=== PATIENT | female | born 1995 | race Caucasian/White ===

== ENCOUNTER 2022-05-03 16:15 | Emergency (ER) | payer MEDICAID, SELFPAY ==
[2022-05-03 16:43] VITALS: BP 150/101; PULSE 90; RESP 18; TEMP 36.4; O2SAT 99; BMI 21.0
[2022-05-03 19:30] LABS: Appearance Urine Clear (Clear); Bilirubin Urine Negative (Negative); Blood Urine Negative (Negative); Color Urine Yellow (Yellow); Glucose Urine Negative (Negative); Ketones Urine Negative (Negative); Leukocyte Esterase Urine Negative (Negative); Nitrite Urine Negative (Negative); Protein Urine Negative (Negative); Specific Gravity Urine 1.025 (1.000-1.030); pH Urine 6.5 (5.0-8.5)
[2022-05-03 19:44] LABS: RBC Urine 0-2 (0-2); WBC Urine 0-2 (0-5)
[2022-05-03 19:45] LABS: Ur HCG Qualitative* Negative (Negative)
[2022-05-03 19:56] LABS: Basophils Absolute Auto 0.03 K/uL (0.00-0.30); Basophils Percent Auto 0.3 % (0.0-3.0); Eosinophils Absolute Auto 0.24 K/uL (0.00-0.50); Eosinophils Percent Auto 2.6 % (0.0-7.0); Hematocrit 38.5 % (33.0-51.0); Hemoglobin* 13.1 gm/dL (12.0-16.0); Immature Granulocytes Abs Auto 0.01 K/uL (0.00-0.30); Lymphocytes Absolute Auto 3.74 K/uL (0.90-2.90); Lymphocytes Percent Auto 40.6 % (20-44); Mean Corpuscular HGB Conc 34 gm/dL (32-36); Mean Corpuscular Hemoglobin 35 pg (26-34); Mean Corpuscular Volume 104 fL (80-100); Monocytes Percent Auto 6.2 % (0.0-11.0); Neutrophils Absolute Auto 4.62 K/uL (1.7-7.0); Neutrophils Percent Auto 50.2 % (42.0-72.0); Platelet Count* 266 K/uL (140-440); RDW Coefficient of Variation % 12.6 % (11.5-15.5); White Blood Count* 9.21 K/uL (4.50-11.00)
[2022-05-03 20:08] LABS: Slide Review Reflex No
--- OUTSIDE RECORDS SUMMARY | 2022-05-03 20:08 | XMS_ITS | Encounter Summary ---
:1995 Author Organization [facility] Address [address] [address] Care Team Providers Name Role Phone Unavailable Primary Care Provider Unavailable Reason for Visit Reason Onset Date Comments Refill 09/22/2020 Encounter Details Date Type Department Care Team Description 09/22/2020 Refill [place] Leif Quezada DDS Refill Dentistry [address] [facility] [address] [place] [address] [place], [place] [address] [phone] Social History Tobacco Use Types Packs/Day Years Used Date Smoking Tobacco: Heavy Smoker Cigarettes Smokeless Tobacco: Current Sex Assigned at Date Recorded Not on file documented as of this encounter Nursing Notes Anne Marie Tran - 09/22/2020 10:06 AM CDT Sent to DR Hoang and DR Cohen since DR Velazquez is out this week documented in this encounter Plan of Treatment Not on filedocumented as of this encounter Visit Diagnoses Not on filedocumented in this encounter
--- OUTSIDE RECORDS SUMMARY | 2022-05-03 20:08 | XMS_ITS | Encounter Summary ---
:1995 Author Organization [facility] Address [address] [place] [address] Care Team Providers Name Role Phone Unavailable Primary Care Provider Unavailable Reason for Visit Reason Comments Restorative Services Amalgam fillings on upper an d loser left side Encounter Details Date Type Department Care Team Description 08/13/2021 Office Visit [facility] Serene Velazquez R estorative Services Dentistry [place] ([place] [address] [place] [address] upper and loser left [place], [place] side ) [phone] Social History Tobacco Use Types Packs/Day Years Used Date Smoking Tobacco: Heavy Smoker Cigarettes Smokeless Tobacco: Current Sex Assigned at Date Recorded Not on file documented as of this encounter Progress Notes Serene Velazquez DDS - 08/13/2021 8:10 AM CST DENTAL VISIT NOTE Subjective Reason for Visit/Chief Complaint: Lynn is a 26 y.o. female who presents for Restorative Services (Amalgam fillings on upper and loser left side ) Chief Complaint: No CC Objective/Assessment Chart Review: The following information was reviewed with the patient: Medical history, Dental history, Problem list, Periodontal charting and Radiographs. RADIOGRAPHIC INTERPRETATION: #12, #13, #14, #19 Normal DIAGNOSIS: Dental caries limited to outer third of dentin (primary encounter diagnosis) Dental caries extending into middle third of dentin Defective dental yazdanism Incomplete fracture of tooth PROGNOSIS: #12, #13, #14, #19 Favorable Plan Treatment Discussion: I discussed the Dental findings, Prognosis, Treatment options, Risks and complications associated with procedure and Billing/Treatment estimate with patient. All questions answered and the patient gave informed consent to proceed with dental treatment/services. Procedural Pause: Patient identity verified: Yes Treatment plan/site verified with the patient: Yes Instruments/equipment verified: Yes Medication/allergy contraindications: No Completed Procedures: ANESTHESIA: Topical with 20% benzocaine 2.75 carpules 2% lidocaine with 1:100,000 epinephrine was administered with ANCELMO and infiltration in #12, #13, #14, #19 No adverse side effects observed. Anesthesia was administered by Serene Velazquez DDS AMALGAM WORSHIP, #12, #13, #14, #19: Prepared with complete caries removal and complete removal of the existing yazdanism Isolated area with high speed suction, cotton rolls and a cheek guard Applied Glass ionomer base Applied desensitizer Placed Vitrebond and Microprime Bonding: N/A Preparation filled with amalgam Verified occlusion, contacts and margins POST-OP INSTRUCTIONS: Patient was advised of normal post-operative instructions, potential for post-operative sensitivity, potential need for additional treatment because of proximity to the pulp and the need to exercise care because of the risk of fracture Care was assisted by Shi Next Planned Visit: Op Serene Velazquez DDS 08/13/2021, 9:48 AM --End of Progress Note-- 8:29 AM CHOOL PROGRAM DIRECTOR documented in this encounter Plan of Treatment Not on filedocumented as of this encounter Procedures Procedure Name Priority Date/Time Associated Diagnosis Comme nts 13 MODB AMALGAM-4 Routine 08/13/2021 8:10 AM PRESCHOOL PROGRAM DIRECTOR Dental caries extending SURFACE into middle third of dentin Defective dental yazdanism 19 MOL AMALGAM-3 Routine 08/13/2021 8:10 AM PRESCHOOL PROGRAM DIRECTOR Dental caries extending SURFACE into middle third of dentin Incomplete fracture of tooth 14 MOL AMALGAM-3 Routine 08/13/2021 8:10 AM PRESCHOOL PROGRAM DIRECTOR Dental caries limited SURFACE to outer third of dentin 12 DO AMALGAM-2 Routine 08/13/2021 8:10 AM PRESCHOOL PROGRAM DIRECTOR Dental caries l imited SURFACE to outer third of dentin documented in this encounter Visit Diagnoses Diagnosis Dental caries limited to outer third of dentin - Primary Dental caries extending into middle thir d of dentin Defective dental yazdanism Unspecified unsatisfactory yazdanism o f tooth Incomplete fracture of tooth documented in this encounter
--- OUTSIDE RECORDS SUMMARY | 2022-05-03 20:08 | XMS_ITS | Encounter Summary ---
:1995 Author Organization [facility] Address [address], [place] [address] Care Team Providers Name Role Phone Unavailable Primary Care Provider Unavailable Reason for Visit Reason Comments Restorative Services Amalgam filling # 3 and 5 Encounter Details Date Type Department Care Team Description 07/13/2021 Office Visit [facility] Serene Velazquez R estorative Services Dentistry DDS (Amalgam filling # 3 [address] [address] [address] [place] [address] [phone] Social History Tobacco Use Types Packs/Day Years Used Date Smoking Tobacco: Heavy Smoker Cigarettes Smokeless Tobacco: Current Sex Assigned at Date Recorded Not on file documented as of this encounter Progress Notes Serene Velazquez DDS - 07/13/2021 9:10 AM CST DENTAL VISIT NOTE Subjective Reason for Visit/Chief Complaint: Lynn is a 26 y.o. female who presents for Restorative Services (Amalgam filling # 3 and 5) Chief Complaint: Sensitive to cold Objective/Assessment Chart Review: The following information was reviewed with the patient: Medical history, Dental history, Problem list, Periodontal charting and Radiographs. PROGNOSIS: #3, #4 Favorable Plan Treatment Discussion: I discussed the Dental findings, Prognosis, Treatment options, Risks and complications associated with procedure and Billing/Treatment estimate with patient. All questions answered and the patient gave informed consent to proceed with dental treatment/services. Procedural Pause: Patient identity verified: Yes Treatment plan/site verified with the patient: Yes Instruments/equipment verified: Yes Medication/allergy contraindications: No Completed Procedures: ANESTHESIA: Topical with 20% benzocaine 1.0 carpules 2% lidocaine with 1:100,000 epinephrine was administered with PSA and infiltration in #3, #4 No adverse side effects observed. Anesthesia was administered by Serene Velazquez DDS AMALGAM MANDAEISM, #3, #4: Prepared with complete caries removal Isolated area with high speed suction, cotton rolls and a cheek guard Applied Glass ionomer base Applied desensitizer Bonding: N/A Preparation filled with amalgam Verified occlusion, contacts and margins POST-OP INSTRUCTIONS: Patient was advised of normal post-operative instructions, potential for post-operative sensitivity, potential need for additional treatment because of proximity to the pulp and the need to exercise care because of the risk of fracture Care was assisted by MASHA Allan Next Planned Visit: Op Serene Velazquez DDS 07/13/2021, 10:21 AM --End of Progress Note-- 9:14 AM ARCH SCIENTIST documented in this encounter Plan of Treatment Not on filedocumented as of this encounter Procedures Procedure Name Priority Date/Time Associated Diagnosis Comme nts 4 MOD AMALGAM-3 Routine 07/13/2021 9:10 AM RESEARCH SCIENTIST Dental caries e xtending SURFACE into middle third of dentin documented in this encounter Visit Diagnoses Diagnosis Dental caries extending into middle thir d of dentin - Primary Dental caries limited to outer third of dentin documented in this encounter
--- OUTSIDE RECORDS SUMMARY | 2022-05-03 20:08 | XMS_ITS | Encounter Summary ---
:[address] [facility] Address [address] [place] [address] Care Team Providers Name Role Phone Unavailable Primary Care Provider Unavailable Reason for Visit Reason Comments No Show [facility] desk called and left a [email or web address] Encounter Details Date Type Department Care Team Description 08/20/2021 Telephone [facility] Serene Velazquez M, N o Show ([facility] desk Dentistry DDS called and left a [address] [employer] [address] [employer] message.kb) [place], [place] [address] [place], [place] [phone] (Wo rk) Social History Tobacco Use Types Packs/Day Years Used Date Smoking Tobacco: Heavy Smoker Cigarettes Smokeless Tobacco: Current Sex Assigned at Date Recorded Not on file documented as of this encounter Plan of Treatment Not on filedocumented as of this encounter Visit Diagnoses Not on filedocumented in this encounter
--- OUTSIDE RECORDS SUMMARY | 2022-05-03 20:08 | XMS_ITS | Encounter Summary ---
:1995 Author Organization [facility] Address [address], [place] [address] Care Team Providers Name Role Phone Unavailable Primary Care Provider Unavailable Reason for Visit Reason Comments Broken Alevism Encounter Details Date Type Department Care Team Description 05/14/2021 Telephone [facility] Serene Velazquez B roken Alevism Dentistry [facility] [address] [facility] [id number] [place] [address] [place], [place] [phone] (Wo rk) Social History Tobacco Use Types Packs/Day Years Used Date Smoking Tobacco: Heavy Smoker Cigarettes Smokeless Tobacco: Current Sex Assigned at Date Recorded Not on file documented as of this encounter Plan of Treatment Not on filedocumented as of this encounter Visit Diagnoses Not on filedocumented in this encounter
--- OUTSIDE RECORDS SUMMARY | 2022-05-03 20:08 | XMS_ITS | Clinical Summary ---
:1995 Author Organization [facility] Address [address] [place] [address] Care Team Providers Name Role Phone Unavailable Primary Care Provider Unavailable Source Comments You are receiving this document as you are listed as the primary care provider,follow-up provider, or the patient has been referred to you for consultation.This is in compliance with the Medicare and Medicaid EHR Incentive Program,which states Providers who transition their patient to another setting of careor provider of care or refers their patient to another provider of care shouldprovide summarycare record for each transition of care or referral. [facility] Allergies No known active allergies Medications Medication Sig Dispensed Refills Start Date End Date Status ibuprofen (MOTRIN) 800 Take 1 Tablet by 30 Tablet 1 10/19/2020 Active MG tablet mouth every 8 hours as needed for Pain. Active Problems No known active problems Social History Tobacco Use Types Packs/Day Years Used Date Smoking Tobacco: Heavy Smoker Cigarettes Smokeless Tobacco: Current Sex Assigned at Date Recorded Not on file Last Filed Vital Signs Vital Sign Reading Time Taken Comments Blood Pressure - - Pulse 91 09/03/2020 7:10 AM RESTAURANT CASHIER Temperature - - Respiratory Rate - - Oxygen Saturation - - Inhaled Oxygen Concentration - - Weight - - Height - - Body Mass Index - - Plan of Treatment Health Maintenance Due Date Last Done Comments Cervical Cancer Screening 1995 Due Hep C Screening (Preventive 1993 Services) HepB (1) 1993 COVID-19 Vaccine (#1) 1993 HIV Screening (Preventive 2009 Services) Adult Preventive Visit 2011 Influenza (#1) 2022 DTaP/Tdap/Td (6 - Tdap) 07/21/2025 07/21/2015, 06/04/1997, 06/08/1994, Additional history exists Zoster/Shingles (1 of 2) 2043 HPV Vaccine Aged Out 04/26/2010, 02/25/2010 No longer eligible based on patient 's age to complete this topic HepA Aged Out No longer eligib le based on patient 's age to complete this topic Hib Aged Out No longer eligib le based on patient 's age to complete this topic IPV (Polio) Aged Out No longer eligib le based on patient 's age to complete this topic MCV4 Aged Out No longer eligib le based on patient 's age to complete this topic Pneumococcal Aged Out No longer eligib le based on patient 's age to complete this topic Insurance Payer Benefit Plan Subscriber ID Effective Dates Phone Address Type / Group [facility] [id number] 2019-[place] Medicaid DENTAL PLAN ADULT DENTAL t
--- OUTSIDE RECORDS SUMMARY | 2022-05-03 20:08 | XMS_ITS | Encounter Summary ---
:1995 Author Organization [facility] Address [address], [place] [address] Care Team Providers Name Role Phone Unavailable Primary Care Provider Unavailable Reason for Visit Reason Comments Problem Focused Exam fractured front filling Encounter Details Date Type Department Care Team Description 05/18/2021 Office Visit [facility] Serene Velazquez P roblem Focused Exam Dentistry DDS (fractured front [address] [place] [address] filling ) [place] [address] [phone] Social History Tobacco Use Types Packs/Day Years Used Date Smoking Tobacco: Heavy Smoker Cigarettes Smokeless Tobacco: Current Sex Assigned at Date Recorded Not on file documented as of this encounter Progress Notes Serene Velazquez DDS - 05/18/2021 4:10 PM CST DENTAL VISIT NOTE Subjective Reason for Visit/Chief Complaint: Lynn is a 26 y.o. female who presents for Problem Focused Exam (fractured front filling ) CHIEF COMPLAINT: fractured filling upper front on the right side Objective/Assessment Chart Review: The following information was reviewed with the patient: Medical history, Dental history, Problem list, Periodontal charting and Radiographs RADIOGRAPHIC INTERPRETATION: #5, #6 Fractured filling DIAGNOSIS: Defective dental caodaism (primary encounter diagnosis) Dental caries limited to outer third of dentin PROGNOSIS: #5, #6 Favorable Treatment Discussion: I discussed the Dental findings, Prognosis, Treatment options, Risks and complications associated with procedure and Billing/Treatment estimate with patient. Plan Consent: All questions answered and the patient gave informed consent to proceed with dental treatment/services. Procedural Pause: Patient identity verified: Yes Treatment plan/site verified with the patient: Yes Instruments/equipment verified: Yes Medication/allergy contraindications: No Completed Procedures: ANESTHESIA: Topical with 20% benzocaine 1.0 carpules 2% lidocaine with 1:100,000 epinephrine was administered with infiltration in #4, #5 No adverse side effects observed. Anesthesia was administered by Serene Velazquez DDS AMALGAM ORTHODOXY, #5: Prepared with complete caries removal Isolated area with high speed suction, cotton rolls and a cheek guard Applied desensitizer Bonding: N/A Preparation filled with amalgam Verified occlusion, contacts and margins POST-OP INSTRUCTIONS: Patient was advised of normal post-operative instructions and potential for post-operative sensitivity COMPOSITE ORTHODOXY, #6: Prepared with complete removal of the existing caodaism Isolated area with high speed suction, cotton rolls and a cheek guard. Applied Glass ionomer base Bonding with Scotchbond [place] material Preparation filled with composite material : Shade: C3 Polishing adjuncts: Soflex discs series Verified occlusion, contacts, margins and aesthetics POST-OP INSTRUCTIONS: Patient was advised of normal post-operative instructions, potential for post-operative sensitivity, potential need for additional treatment because of proximity to the pulp and the need to exercise care because of the risk of fracture Care was assisted by MASHA Allan Next Planned Visit: op Serene Velazquez DDS 05/18/2021, 6:50 PM --End of Progress Note-- 4:21 PM STRIAL METHODS CONSULTANT documented in this encounter Plan of Treatment Not on filedocumented as of this encounter Procedures Procedure Name Priority Date/Time Associated Diagnosis Comme nts 3 MODL AMALGAM-4 Routine 07/13/2021 9:10 AM Dental caries limi jes SURFACE INDUSTRIAL METHODS CONSULTANT to outer third of dentin FILM-PERIAPICAL FIRST Routine 05/18/2021 4:10 PM Defective den sarah INDUSTRIAL METHODS CONSULTANT caodaism 6 MIFL Routine 05/18/2021 4:10 PM Defective dental COMPOSITE-4+SURFACE INDUSTRIAL METHODS CONSULTANT caodaism ANTERIOR 5 DO AMALGAM-2 SURFACE Routine 05/18/2021 4:10 PM Defective de ntal INDUSTRIAL METHODS CONSULTANT caodaism Dental caries limited to outer third of dentin LIMITED ORAL EVALUATION Routine 05/18/2021 4:10 PM Defective d ental INDUSTRIAL METHODS CONSULTANT caodaism documented in this encounter Visit Diagnoses Diagnosis Defective dental caodaism - Primary Unspecified unsatisfactory caodaism o f tooth Dental caries limited to outer third of dentin documented in this encounter
--- OUTSIDE RECORDS SUMMARY | 2022-05-03 20:08 | XMS_ITS | Encounter Summary ---
:1995 Author Organization [facility] Address [address], [place] [address] Care Team Providers Name Role Phone Unavailable Primary Care Provider Unavailable Reason for Visit Reason Comments Dental Exam # 5 tooth broke Encounter Details Date Type Department Care Team Description 05/14/2021 Office Visit [facility] Serene Velazquez D ental Exam (# 5 tooth Dentistry DDS broke ) [address] [facility] [address] [place] [address] [phone] Social History Tobacco Use Types Packs/Day Years Used Date Smoking Tobacco: Heavy Smoker Cigarettes Smokeless Tobacco: Current Sex Assigned at Date Recorded Not on file documented as of this encounter Progress Notes Serene Velazquez DDS - 05/14/2021 8:40 AM CST DENTAL PROBLEM FOCUS VISIT NOTE Subjective Lynn is a 26 y.o. female who presents for Dental Exam (# 5 tooth broke ) Chief Complaint: Broken tooth Pain Assessment: Current level of pain: 0/10 Worst pain level associated with this problem: 0/10 Location of pain: Maxillary right Nature of pain: N/A Eliciting factors: N/A Duration: Days Alleviating factors: Not taking anything Swelling: None Objective/Assessment The following information was reviewed with the patient: Medical history, Dental history and Radiographs. Radiographic Interpretation: #5 Caries -CLINICAL TESTS- Loc Cold Hot Percussion Apical Palp ation Cusps + to Tooth Sleuth Perio Probing (mm) Mobility EPT #5 + N/A - - None N/A Grade 0 N/A Diagnosis: Fractured dental lutheran with loss of material (primary encounter diagnosis) Dental caries extending into middle third of dentin Prognosis: #5 Favorable Fractured filling # 5,Offered to do a sed fill today but patient declined, patient opts to do all fillings together as she needs fillings on 3 and 4 as well Plan Consent: I discussed the Dental findings, Prognosis, Treatment options, Risks and complications associated with procedure and Billing/Treatment estimate with the patient. All questions answered and they expressed understanding. Procedural Pause: Patient identify verified: Yes Treatment plan/site verified with the patient Instruments/equipment verified: Yes Any medication/allergy contraindications: No Completed Procedures: ANESTHESIA: None used, procedure was minimally invasive. Limited Oral Exam Care was assisted by MASHA Soria 05/14/2021, 9:02 AM Next Planned Visit: Op No Medications ordered this encounter Serene Velazquez DDS 05/14/2021, 9:22 AM ESTATE ADMINISTRATIVE ASSISTANT documented in this encounter Plan of Treatment Not on filedocumented as of this encounter Procedures Procedure Name Priority Date/Time Associated Diagnosis Comme nts 5 FILM-PERIAPICAL FIRST Routine 05/14/2021 8:40 AM Fractured d ental REAL ESTATE ADMINISTRATIVE ASSISTANT lutheran with loss of material Dental caries extending into middle third of dentin [id number] Routine 05/14/2021 8:40 AM Fractured dent al REAL ESTATE ADMINISTRATIVE ASSISTANT lutheran with loss of material Dental caries extending into middle third of dentin 5 LIMITED ORAL Routine 05/14/2021 8:40 AM Fractured dental EVALUATION REAL ESTATE ADMINISTRATIVE ASSISTANT lutheran with loss of material Dental caries extending into middle third of dentin documented in this encounter Visit Diagnoses Diagnosis Fractured dental lutheran with loss o f material - Primary Fractured dental restorative material wi th loss of material Dental caries extending into middle thir d of dentin documented in this encounter
--- OUTSIDE RECORDS SUMMARY | 2022-05-03 20:08 | XMS_ITS | Encounter Summary ---
:1995 Author Organization [facility] Address [address] [address] Care Team Providers Name Role Phone Unavailable Primary Care Provider Unavailable Reason for Visit Reason Onset Date Comments Refill 10/19/2020 Encounter Details Date Type Department Care Team Description 10/19/2020 Refill [place] Leif Quezada DDS Refill Dentistry [address] [facility] [address] [place] [address] [place], [place] [address] [phone] Social History Tobacco Use Types Packs/Day Years Used Date Smoking Tobacco: Heavy Smoker Cigarettes Smokeless Tobacco: Current Sex Assigned at Date Recorded Not on file documented as of this encounter Plan of Treatment Not on filedocumented as of this encounter Visit Diagnoses Not on filedocumented in this encounter
--- OUTSIDE RECORDS SUMMARY | 2022-05-03 20:08 | XMS_ITS | Encounter Summary ---
:1995 [facility] Address [address] [place] [address] Care Team Providers Name Role Phone Unavailable Primary Care Provider Unavailable Reason for Visit Reason Comments Lost Latter-Day Encounter Details Date Type Department Care Team Description 03/30/2021 Telephone [facility] Leif Velazquez DDS Lost [facility] Dentistry [address] [facility] [address] [place] [address] [place], [place] [address] [phone] Social History Tobacco Use Types Packs/Day Years Used Date Smoking Tobacco: Heavy Smoker Cigarettes Smokeless Tobacco: Current Sex Assigned at Date Recorded Not on file documented as of this encounter Nursing Notes Linnette Chávez - 03/30/2021 4:54 PM CDT Patient declined scheduling today. documented in this encounter Plan of Treatment Not on filedocumented as of this encounter Visit Diagnoses Not on filedocumented in this encounter
--- OUTSIDE RECORDS SUMMARY | 2022-05-03 20:09 | XMS_ITS | Encounter Summary ---
:1995 Author Organization [facility] Address [address] [place] [address] Care Team Providers Name Role Phone Unavailable Primary Care Provider Unavailable Reason for Visit Reason Comments Dental Conversion [facility] EDR to [place] convers ion Encounter Details Date Type Department Care Team Description 12/08/2016 Dental Conversion [place] [facility] Serene Velazquez, [place] [facility]istry DDS [address] [facility] [address] [place], [place] [address] [place], [place] [phone] Social History Tobacco Use Types Packs/Day Years Used Date Smoking Tobacco: Never Assessed Sex Assigned at Date Recorded Not on file documented as of this encounter Discharge Summaries Interface, In Edr Dental Conversion - 03/25/2017 12:00 AM CDT EDR Pt Notes: 03/09/16 pt failed op appt Interface, In Edr Dental Conversion - 11/21/2016 12:00 AM CDT 11/21/2016: Specialty Referral 1st Contact: left message to call back to schedule consult-ER 11/21 documented in this encounter Miscellaneous Notes Miscellaneous - Interface, In Edr Dental Conversion - 03/09/2016 12:00 AM CDT 03/09/2016: No Show: Couldnt get long distance number to go thru. Miscellaneous - Interface, In Edr Dental Conversion - 12/16/2015 12:00 AM CDT 12/16/2015: Provider Portal Checked: checked documented in this encounter Plan of Treatment Not on filedocumented as of this encounter Visit Diagnoses Not on filedocumented in this encounter
--- OUTSIDE RECORDS SUMMARY | 2022-05-03 20:09 | XMS_ITS | Encounter Summary ---
:1995 Author Organization [facility] Address [address], [place] [address] Care Team Providers Name Role Phone Unavailable Primary Care Provider Unavailable Reason for Visit Reason Comments Dental Hygiene cc; none Encounter Details Date Type Department Care Team Description 09/03/2020 Office Visit [place] Haydee Smith De nta Hygiene (cc; Dentistry [facility] none) [address] [facility] [address] [place] [address] Social History Tobacco Use Types Packs/Day Years Used Date Smoking Tobacco: Heavy Smoker Cigarettes Smokeless Tobacco: Current Sex Assigned at Date Recorded Not on file documented as of this encounter Last Filed Vital Signs Vital Sign Reading Time Taken Comments Blood Pressure - - Pulse 91 09/03/2020 7:10 AM SUPERVISOR TUBING Temperature - - Respiratory Rate - - Oxygen Saturation - - Inhaled Oxygen Concentration - - Weight - - Height - - Body Mass Index - - documented in this encounter Patient Instructions Patient InstructionsHaydee Davidson, [facility] - 09/03/2020 7:10 AM CST Your next hygiene recall is due 09/03/2021 YOUR PERSONAL DENTAL RISK REPORT CARIES (TOOTH DECAY) PERIODONTAL (GUM) DISEASE ORAL CANCER low mod HIGH low MOD high low ELEVATED ^ ^ ^ Risk Level: HIGH Risk Factors: Caries (tooth decay) in 3 or more teeth in the last three years. How to Reduce Your Risk: Rinse with fluoride rinse once to twice daily at times other than when brushing. Application of a concentrated fluoride product to the teeth in the clinic to assist in remineralization. Radiographs to detect decay. Dental restorations such as fillings, crowns, or other dental treatment to help manage decay. Risk Level: MODERATE Risk Factors: Use of tobacco in cigarettes, cigars, or pipes. How to Reduce Your Risk: Consider quitting tobacco habit. Participate in [facility] program ([phone]) or other means of quitting. Risk Level: ELEVATED Risk Factors: Use of tobacco. How to Reduce Your Risk: Consider quitting tobacco habit. Participate in [facility] program ([phone]) or other means of quitting. Lynn, we look forward to seeing you at your next visit! [facility] RVISOR TUBING documented in this encounter Progress Notes Luisana Cohen DDS - 09/03/2020 7:10 AM CST RECALL EXAM NOTE REASON FOR VISIT/CHIEF COMPLAINT: Lynn is a 25 y.o. female who presents for Dental Hygiene (cc; none) CHART REVIEW: Reviewed with patient: Medical history, Dental history, Problem list, Periodontal charting and Radiographs SOFT TISSUE, HEAD AND NECK EXAMINATION: Lips: Normal Tongue: Normal Palate: Normal Throat: Normal Floor of the mouth: Normal Mucosa: Normal Head and neck: Normal TMD EVALUATION: Palpation Pain: None Joint Sounds: None Pain with Range of Motion: None OCCLUSAL EXAMINATION: Angle relationship: Right molar: Class I Right cuspid: Class I Left molar: Class I Left cuspid: Class I Maxillary midline: WNL Mandibular midline: WNL Overbite: 2 mm Overjet: 1 mm Crossbite: None Space loss: None Crowding: Moderate Occlusion: All teeth Attrition: Excessive Erosion: Present ant. Li Overall occlusal relationship: Stable COSMETIC CONCERNS: Patient's Perception: Acceptable Dentist's Perception: Acceptable TREATMENT REVIEW AND FOLLOW-UP: Discussed the Dental findings, Prognosis and Treatment options with the patient. All questions answered and informed consent was obtained. Recommended Recall Interval: Examination: 6 months : Recall prophy: 6 months Planned Recall Interval: Examination: 12 months : Recall prophy: 12 months Next Planned Visit: sed brandyn #13 w/ Dr. Caroline Cohen DDS 09/03/2020, 7:48 AM --End of Note-- RVISOR TUBING Haydee Davidson RDH - 09/03/2020 7:10 AM CST HYGIENE PROPHY NOTE Patient given 1%-1.5% hydrogen peroxide, rinsed for 60 seconds prior to procedure. COLLABORATIVE AGREEMENT: The patient consents to have charting, radiographs and prophylaxis by the dental hygienist performed with the understanding that this care is not a substitute for an examination by a dentist. These activities were performed under a collaborating agreement with Boogie Hoang DDS (License #:[id number]) PRESENTATION: Oral Hygiene: Poor Plaque: Generalized, moderate interproximal and posterior buccal Calculus: Generalized, moderate supra-gingival , sub-gingival, interproximal, mandibular anterior and posterior buccal Stain: Localized, light tobacco and coffee/tea Bleeding: Generalized heavy Gingival tissue: Inflamed Mucogingival concerns: Absent ACTIVITIES: Hand scale, Essential selective polishing and Flossed all contacts PATIENT EDUCATION: Caries risk, Periodontal risk, Oral cancer risk, OHI, Remineralization strategies, Fluoride rinse, Diet modification and Tobacco cessation REMINERALIZATION COUNSELING: Patient's readiness for change: Preparation Caries risk factors to be addressed: Recent or active caries Patient has not been compliant with previous recommendations to address caries risk. Reviewed with patient: Remineralization, Diet and Oral hygiene Today's activities: Application of fluoride OTC fluoride prescribed/recommended. Health education: No handouts given to patient. Follow up plan: 12 mo recall NEXT PLANNED HYGIENE VISIT: Hygiene Prophy with exam Haydee Davidson RDH 09/03/2020, 8:11 AM --End of Note-- RVISOR TUBING documented in this encounter Plan of Treatment Scheduled Orders Name Type Priority Associated Order Schedule Diagnoses PROPHYLAXIS-ADULT Dental Procedures Routine 1 Occ urrences RECALL starting 2020 PERIODIC ORAL Dental Procedures Routine 1 Occurre nces EVALUATION starting 2020 [id number] Dental Procedures Routine 1 Oc currences starting 2020 TOPICAL FLUORIDE Dental Procedures Routine 1 Occu rrences VARNISH starting 2020 30 O 30 O AMALGAM-1 Dental Procedures Routine 1 O ccurrences SURFACE starting 2021 31 MARIELLA 31 MARIELLA Dental Procedures Routine 1 Occurren simeon AMALGAM-2 SURFACE starting 0 07/13/2021 9 DFL 9 DFL Dental Procedures Routine 1 Occurren simeon COMPOSITE-3 SURFACE starting 08/18/2021 ANTERIOR documented as of this encounter Procedures Procedure Name Priority Date/Time Associated Diagnosis Comme nts [id number] Routine 09/03/2020 7:10 AM Routine adult h ealth SUPERVISOR TUBING maintenance PERIODIC ORAL Routine 09/03/2020 7:10 AM Routine adult health EVALUATION SUPERVISOR TUBING maintenance PROPHYLAXIS-ADULT Routine 09/03/2020 7:10 AM Routine adult hea lth RECALL SUPERVISOR TUBING maintenance 30 O EXISTING COMPOSITE Routine 12/25/2015 11:00 PM FILLING CDT documented in this encounter Visit Diagnoses Diagnosis Routine adult health maintenance - Prima ry Routine general medical examination at a health care facility Defective dental rastafarian Unspecified unsatisfactory rastafarian o f tooth documented in this encounter
--- OUTSIDE RECORDS SUMMARY | 2022-05-03 20:09 | XMS_ITS | Encounter Summary ---
:1995 Author Organization [facility] Address [address], [place] [address] Care Team Providers Name Role Phone Unavailable Primary Care Provider Unavailable Reason for Visit Reason Comments Endodontic Services RCT #13 Encounter Details Date Type Department Care Team Description 09/09/2020 Office Visit [facility] Serene Velazquez E ndodontic Services Dentistry DDS (RCT #13) [id number] [facility] [address] [place] [address] [phone] Social History Tobacco Use Types Packs/Day Years Used Date Smoking Tobacco: Heavy Smoker Cigarettes Smokeless Tobacco: Current Sex Assigned at Date Recorded Not on file documented as of this encounter Progress Notes Serene Velazquez DDS - 09/09/2020 9:40 AM CST DENTAL VISIT NOTE Patient given 1%-1.5% hydrogen peroxide, rinsed for 60 seconds prior to procedure. Subjective Reason for Visit/Chief Complaint Lynn is a 25 y.o. female who presents for Endodontic Services (RCT #13) CHIEF COMPLAINT: No CC Objective/Assessment Chart Review The following information was reviewed with the patient: Medical history, Dental history, Problem list, Periodontal charting and Radiographs RADIOGRAPHIC INTERPRETATION: #13 Caries, Widening of PDL space DIAGNOSIS: Symptomatic reversible pulpitis (primary encounter diagnosis) Acute apical periodontitis Defective dental taoist PROGNOSIS: #13 Favorable Plan Treatment Discussion I discussed the Dental findings, Prognosis, Treatment options, Risks and complications associated with procedure and Billing/Treatment estimate with patient. CONSENT: Patient was advised of the risks and potential complications of Endodontic Therapy. Such complications which can occur during treatment and/or may affect the outcome of treatment include, but are not limited to: ?? Root canal therapy is reportedly successful 85-95% of the time. ?? Post-op discomfort or swelling lasting a few hours to several days may require medications as deemed necessary by the dentist. ?? Separation of canal instruments in the root canal may be left in the canal or require surgery forremoval based on dentist judgement ?? Perforation of the tooth/root may require additional surgical correction or result in loss of thetooth. ?? Crack or fracture of tooth/taoist during treatment may require a new taoist or possiblyresult in loss of the tooth ?? Administration of local anesthetics may result in complications such as an allergic reaction, fainting, heart palpitations, bruising, hematoma and parasthesia in the lip and tongue. ?? Short or long-term tenderness or soreness related to the temporomandibular joint. ?? Seek evaluation and treatment from pain specialist IF pain persists for six months or more. ?? Timely and definitive taoist of the tooth is often required once the treatment is completed. ?? Contact our office if symptoms continue with the tooth. Periodic recalls may be recommended. All questions answered and the patient gave informed consent to proceed with dental treatment/services. Completed Procedures ANESTHESIA: Topical with 20% benzocaine 1.0 carpules 2% lidocaine with 1:100,000 epinephrine was administered with infiltration in #13 Additional anesthesia: Topical with 20% benzocaine. 1.0 carpules 4% septocaine with 1:100,000 epinephrine was administered with infiltration and PDL in #13 No adverse side effects observed. Anesthesia was administered by Serene Velazquez DDS ENDODONTIC THERAPY, #13: Isolated area with high speed suction, cotton rolls, a cheek guard and a rubber dam. Canal Location: Facial X-ray length: 18 mm Working length: 20 mm Instrument size: 20.04 Reference: Corresponding cusp tip Canal Location: Lingual X-ray length: 18 mm Working length: 17 mm Instrument size: 20.04:::1 Reference: Corresponding cusp tip Irrigation: Sodium hypochlorite 2.5-5.25% : Dried with paper points Sealed with: eugenol-based endodontic sealer Canals filled by: warm vertical compaction of chuck percha : Access closed with amalgam Total radiographs required for treatment: 4 Patient presented with: Fractured M enamel and dentin POST-OP INSTRUCTIONS: Patient was advised of normal post-operative instructions, potential for post-operative sensitivity and the need to exercise care because of the risk of fracture. AMALGAM JAINISM, #13: Prepared with complete caries removal Isolated area with high speed suction and a rubber dam Applied Glass ionomer base Bonding: N/A Preparation filled with amalgam Verified occlusion, contacts and margins POST-OP INSTRUCTIONS: Patient was advised of normal post-operative instructions, potential for post-operative sensitivity and the need to exercise care because of the risk of fracture Care was assisted by MASHA Soria 09/09/2020, 9:46 AM Next Planned Visit:Recall Serene Velazquez DDS 09/09/2020, 11:01 AM --End of Note-- 9:42 AM OPERATOR HELPER documented in this encounter Plan of Treatment Not on filedocumented as of this encounter Procedures Procedure Name Priority Date/Time Associated Diagnosis Comme nts 13 ROOT Routine 09/09/2020 9:40 AM Symptomatic reversible CANAL-BICUSPID KILN OPERATOR HELPER pulpitis Acute apical periodontitis 13 MOD AMALGAM-3 Routine 09/09/2020 9:40 AM Symptomatic revers ible SURFACE KILN OPERATOR HELPER pulpitis Acute apical periodontitis Defective dental taoist documented in this encounter Visit Diagnoses Diagnosis Symptomatic reversible pulpitis - Primar y Acute apical periodontitis Acute apical periodontitis of pulpal aric gin Defective dental taoist Unspecified unsatisfactory taoist o f tooth documented in this encounter
--- OUTSIDE RECORDS SUMMARY | 2022-05-03 20:09 | XMS_ITS | Encounter Summary ---
:1995 Author Organization [facility] Address [address], [place] [address] Care Team Providers Name Role Phone Unavailable Primary Care Provider Unavailable Reason for Visit Reason Comments Problem Focused Exam UL tooth ache Encounter Details Date Type Department Care Team Description 09/01/2020 Office Visit [facility] Serene Velazquez P roblem Focused Exam Dentistry DDS (UL tooth ache) [address] [facility] [address] [place] [address] [phone] Social History Tobacco Use Types Packs/Day Years Used Date Smoking Tobacco: Heavy Smoker Cigarettes Smokeless Tobacco: Current Sex Assigned at Date Recorded Not on file documented as of this encounter Progress Notes Serene Velazquez DDS - 09/01/2020 4:30 PM CST DENTAL PROBLEM FOCUS VISIT NOTE Patient given 1%-1.5% hydrogen peroxide, rinsed for 60 seconds prior to procedure. SUBJECTIVE: Lynn is a 25 y.o. female who presents for Problem Focused Exam (UL tooth ache) CHIEF COMPLAINT: Toothache UL. PAIN ASSESSMENT: Current level of pain: 3/10 Worst pain level associated with this problem: 9/10 Location of pain: Maxillary left Nature of pain: Sharp Eliciting factors: Hot, Cold, Pressure, Chewing Duration: Weeks Alleviating factors: Not taking anything Swelling: None OBJECTIVE/ASSESSMENT The following information was reviewed with the patient: Medical history, Dental history and Radiographs RADIOGRAPHIC INTERPRETATION: #12 Caries, Periapical radiolucency -CLINICAL TESTS- Loc Cold Hot Percussion Apical Palp ation Cusps + to Tooth Sleuth Perio Probing (mm) Mobility EPT #12 +++ and Lingering N/A ++ + M, L 222,212 Grade 0 N/A DIAGNOSIS: Dental caries into pulp (primary encounter diagnosis) Acute apical periodontitis Dental caries extending into inner third of dentin Symptomatic irreversible pulpitis PROGOSIS: #12 Favorable Discussed treatment plan with patient, recommended no treatment/ extraction or RCT and crown, patient opted to do the RCT at this point and crown at a later date PLAN: CONSENT: I discussed the Dental findings, Prognosis, Treatment options, Risks and complications associated with procedure and Billing/Treatment estimate with the patient. All questions answered and they expressed understanding. Completed Procedures: ANESTHESIA: None used, procedure was minimally invasive. Limited Oral Exam Care was assisted by MASHA Soria 09/01/2020, 4:44 PM Next Planned Visit: Sed fill and opening of RCT Serene Velazquez DDS 09/01/2020, 5:23 PM No Medications ordered this encounter RACT MODELER documented in this encounter Plan of Treatment Not on filedocumented as of this encounter Procedures Procedure Name Priority Date/Time Associated Diagnosis Comme nts FILM-PERIAPICAL FIRST Routine 09/01/2020 4:30 PM Dental caries into pulp CONTRACT MODELER LIMITED ORAL Routine 09/01/2020 4:30 PM Acute apical EVALUATION CONTRACT MODELER periodontitis Dental caries extending into inner third of dentin Symptomatic irreversible pulpitis 3 O EXISTING COMPOSITE Routine 12/25/2015 11:00 PM FILLING CDT documented in this encounter Visit Diagnoses Diagnosis Dental caries into pulp - Primary Dental caries extending into pulp Acute apical periodontitis Acute apical periodontitis of pulpal aric gin Dental caries extending into inner third of dentin Symptomatic irreversible pulpitis Dental caries extending into middle thir d of dentin Defective dental religious Unspecified unsatisfactory religious o f tooth documented in this encounter
--- OUTSIDE RECORDS SUMMARY | 2022-05-03 20:09 | XMS_ITS | Encounter Summary ---
:1995 Author Organization [facility] Address [address] [place] [address] Care Team Providers Name Role Phone Unavailable Primary Care Provider Unavailable Reason for Visit Reason Comments APPOINTMENT REQUEST Encounter Details Date Type Department Care Team Description 09/01/2020 Telephone [facility] Serene Velazquez A PPOINTMENT REQUEST Dentistry [facility] [address] [facility] [address] [place], [place] [address] [place], [place] [phone] (Wo rk) Social History Tobacco Use Types Packs/Day Years Used Date Smoking Tobacco: Heavy Smoker Cigarettes Smokeless Tobacco: Current Sex Assigned at Date Recorded Not on file documented as of this encounter Nursing Notes Linnette Chávez - 09/01/2020 5:44 PM CST Miscellaneous Questions & FYI's [[facility]: If this call is after 3 p.m., communicate to patient: If we are not able to get back to you by the end of the day and your symptoms worsen please contact the Careline at [phone] OR at .] What is your comment or FYI? Left voicemail informing patient that appointment on 09/08/20 is not needed all work will be done on09/09/20. Have you recently been seen for this? No Is it okay to leave a detailed message on your voicemail? Yes Linnette Chávez TIONATING STILL OPERATOR documented in this encounter Plan of Treatment Not on filedocumented as of this encounter Visit Diagnoses Not on filedocumented in this encounter
--- OUTSIDE RECORDS SUMMARY | 2022-05-03 20:09 | XMS_ITS | Encounter Summary ---
:1995 Author Organization [facility] Address [address], [place] [address] Care Team Providers Name Role Phone Unavailable Primary Care Provider Unavailable Reason for Visit Reason Comments TOOTHACHE Broken Mandaeism Encounter Details Date Type Department Care Team Description 08/28/2020 Telephone [facility] No TOOTHAC HE; Broken Dentistry Primary/Referring Mandaeism [address] [address] [place], [place] [address] Social History Tobacco Use Types Packs/Day Years Used Date Smoking Tobacco: Never Assessed Sex Assigned at Date Recorded Not on file documented as of this encounter Plan of Treatment Not on filedocumented as of this encounter Visit Diagnoses Not on filedocumented in this encounter
--- OUTSIDE RECORDS SUMMARY | 2022-05-03 20:09 | XMS_ITS | Encounter Summary ---
:1995 Author Organization [facility] Address [address] [address] Care Team Providers Name Role Phone Unavailable Primary Care Provider Unavailable Reason for Visit Reason Comments Broken Latter Day Encounter Details Date Type Department Care Team Description 09/01/2020 Telephone [place] Serene Velazquez B roken Latter Day Dentistry [facility] [address] [facility] [id number] [place] [address] [place], [place] [phone] (Wo rk) Social History Tobacco Use Types Packs/Day Years Used Date Smoking Tobacco: Heavy Smoker Cigarettes Smokeless Tobacco: Current Sex Assigned at Date Recorded Not on file documented as of this encounter Plan of Treatment Not on filedocumented as of this encounter Visit Diagnoses Not on filedocumented in this encounter
[2022-05-03 20:10] LABS: Chloride* 102 mmol/L (96-114)
[2022-05-03 20:11] LABS: Albumin* 4.7 g/dL (3.3-5.0); Potassium* 4.2 mmol/L (3.6-5.1); Sodium* 139 mmol/L (135-149)
[2022-05-03 20:12] LABS: Prothrombin Time 12.7 Seconds
[2022-05-03 20:13] LABS: Creatinine* 0.7 mg/dL (0.5-1.5); Est. Creatinine Clearance* 93.79; Estimated Glomerular Filt Rate 120 ml/min
[2022-05-03 20:14] LABS: Bilirubin Direct* 0.2 mg/dL (0.0-0.5); Bilirubin Total* 0.7 mg/dL (0.1-1.5); Blood Urea Nitrogen* 10 mg/dL (5-24); Calcium* 9.3 mg/dL (8.4-10.6); Carbon Dioxide* 26 mmol/L (20-32); Glucose* 96 mg/dL (60-115)
[2022-05-03 20:15] LABS: Alanine Aminotransferase* 23 U/L (4-35); Alkaline Phosphatase* 56 U/L (40-150); Aspartate Amino Transferase* 40 U/L (12-35); Total Protein* 7.4 g/dL (6.0-8.3)
[2022-05-03 20:20] LABS: C Reactive Protein* < 0.5 mg/dL (0.5-1.0)
--- NOTE | 2022-05-03 21:47 | ED_ITS ---
HPI - General Adult General Date Seen: 05/03/22 Chief complaint: Urogenital Problems, Female Stated complaint: Possible kidney infection Time Seen by Provider: 05/03/22 19:18 Source: patient History of Present Illness HPI narrative: Patient is a 27-year-old woman who presents after having a bloody stool this morning. She says last week she had ?food poisoning for 1 day, which consisted of vomiting and diarrhea. She says she in her boyfriend ate the same food although she had let us and he did not. He did not get sick. Symptoms resolved and she says she had been for the most part final although she was still having some loose stools. This morning she got up at about 6:00 a.m. and had again a somewhat loose stool with blood mixed in. She has noted some pain in bilateral flanks throughout the day today, she says that she is used to having pain in this area because of her chronic endometriosis and ovarian cysts, but feels worse today. She has not noted a fever or any unusual rashes. She has not had specific urinary symptoms although she feels she is urinating less than usual today. She has had no further bowel movements today. She has no history of bloody stools. She has never had a colonoscopy. She has had several abdominal surgeries for endometriosis. She does not have significant abdominal pain. She is tearful during our conversation, she was waiting in triage for about 2-1/2 hours due to the emergency department being significantly busy. When I asked her what was wrong she said that she was tired and crabby and hungry, and just wanted to go home. I asked her if there was anything else I could do to help and she said she just wanted worked up as quickly as possible so that she could leave. She does smoke cigarettes, she drinks regularly, 2 to 3 times a week. Denies other substances. Related Data Home Medications Medication Instructions Recorded Confirmed No Known Home Medications 05/03/22 05/03/22 Allergies Allergy/AdvReac Type Severity Reaction Status Date / Time No Known Drug Allergies Allergy Verified 05/03/22 16:46 Review of Systems Status of ROS: Reports: 10 or more systems reviewed and unremarkable except as noted in History and below Exam Narrative: Exam Narrative: Vital signs as noted above. In general, an alert, well-appearing patient. Looks comfortable. Head: Normocephalic, atraumatic. Eyes: Pupils are equal reactive. Extraocular movements are full. Conjunctivae are normal. ENT: Mucous membranes are moist. Throat is normal. Neck: Supple without lymphadenopathy. Heart: Regular rate and rhythm. No murmur or rub. Lungs: Clear bilaterally. No increased work of breathing, crackles or wheezes. Back: No CVA tenderness. Abdomen: Soft and nontender. No organomegaly. Extremities: Well perfused. No edema. No calf tenderness. Pulses intact. Neurologic: Patient is alert and oriented to person and place. Speech is fluent. Face is symmetric. Moves all extremities equally. Affect: Labile. Skin: Warm and dry. Well perfused. Const: Vital Signs, click to edit/add: Vital Signs - 24 hr 05/03/22 16:43 Temperature 97.5 F L Pulse Rate [Pulse Oximeter] 90 Respiratory Rate 18 Blood Pressure [Ri ght Upper Arm] 150/101 H Pulse Oximetry 99 Oxygen Delivery Me thod Room Air Documenting provider has reviewed patient's vital signs: yes Course Course Hospital Course: Patient had labs including a CBC, metabolic panel, INR, LFTs, CRP as well as urinalysis. The urinalysis is entirely negative, 0 red cells, 0 white cells, no protein. Her white blood cell count is normal, hemoglobin is 13.1 and platelets are 266,000. INR is normal. Metabolic panel is entirely within normal limits. LFTs aside from an AST of 40 are also normal. CRP is less than 0.5. There is nothing to suggest a vasculitis or significant inflammatory process. She has had 1 episode of bloody stools this morning and has a normal hemoglobin, no recurrence throughout the day today. She has a benign abdominal exam. At this time, I have discussed with her I do not have a clear explanation for her symptoms. I do not know whether this is related to her episode of vomiting and diarrhea last week, whether she may have some ongoing enteritis as an explanation or whether this is a separate problem. I did discuss with her that primary care follow-up certainly be recommended to decide whether she needs additional workup for this episode. For now although I think it is reasonable to let her go home. If she has significant recurrent bleeding or develops new problem such as fever, significant abdominal pain, unusual rashes would expect her to return to the emergency department for further evaluation. Vital Signs Vital signs: Initial Vital Signs Temperature 97.5 F L 05/03/22 16:43 Temperature Source Temporal Artery Scan 05/03/22 16:43 Pulse Rate 90 05/03/22 16:43 Respiratory Rate 18 05/03/22 16:43 Blood Pressure 150/101 H 05/03/22 16:43 Blood Pressure Mean 117 05/03/22 16:43 Blood Pressure Position Supine 05/03/22 16:43 Pulse Oximetry 99 05/03/22 16:43 Oxygen Delivery Method 05/03/22 16:43 Vital Signs Temperature 97.5 F L 05/03/22 16:43 Pulse Rate 90 05/03/22 16:43 Respiratory Rate 18 05/03/22 16:43 Blood Pressure 150/101 H 05/03/22 16:43 Pulse Oximetry 99 05/03/22 16:43 Oxygen Delivery Method 05/03/22 16:43 Temperature 97.5 F L 05/03/22 16:43 Pulse Rate 90 05/03/22 16:43 Respiratory Rate 18 05/03/22 16:43 Blood Pressure 150/101 H 05/03/22 16:43 Pulse Oximetry 99 05/03/22 16:43 Oxygen Delivery Method 05/03/22 16:43 Medical Decision Making Lab Data Labs: Lab Results 05/03/22 05/03/22 05/03/22 Range/Units 19:00 19:33 19:46 WBC (4.50-11.00) K/uL RBC (4.00-5.20) m/uL Hgb (12.0-16.0) gm/dL Hct (33.0-51.0) % MCV (80-100) fL MCH (26-34) pg MCHC (32-36) gm/dL RDW Coeff of Inez (11.5-15.5) % Plt Count (140-440) K/uL Neut % (Auto) (42.0-72.0) % Lymph % (Auto) (20-44) % [place] % (Auto) (0.0-11.0) % Eos % (Auto) (0.0-7.0) % Baso % (Auto) (0.0-3.0) % Neut # (Auto) (1.7-7.0) K/uL Lymph # (Auto) (0.90-2.90) K/uL [place] # (Auto) (0.00-0.90) K/UL Eos # (Auto) (0.00-0.50) K/uL Baso # (Auto) (0.00-0.30) K/uL Abs Immat Gran (auto) (0.00-0.30) K/uL Imm/Tot Granulo (auto) INR (0.91-1.10) Sodium 139 (135-149) mmol/L Potassium 4.2 (3.6-5.1) mmol/L Chloride 102 (96-114) mmol/L Carbon Dioxide 26 (20-32) mmol/L BUN 10 (5-24) mg/dL Creatinine 0.7 (0.5-1.5) mg/dL Estimated Creat Clear 93.79 Estimated GFR 120 ml/min Glucose 96 (60-115) mg/dL Calcium 9.3 (8.4-10.6) mg/dL Total Bilirubin (0.1-1.5) mg/dL Direct Bilirubin (0.0-0.5) mg/dL AST (12-35) U/L ALT (4-35) U/L Alkaline Phosphatase (40-150) U/L C-Reactive Protein (0.5-1.0) mg/dL Total Protein (6.0-8.3) g/dL Albumin (3.3-5.0) g/dL Urine Color Yellow (Yellow) Urine Appearance Clear (Clear) Urine pH 6.5 (5.0-8.5) Ur Specific [place] 1.025 (1.000-1.030) Urine Protein Negative (Negative) Urine Glucose (UA) Negative (Negative) Urine Ketones Negative (Negative) Urine Blood Negative (Negative) Urine Nitrite Negative (Negative) Urine Bilirubin Negative (Negative) Urine Urobilinogen 1.0 (0.2-1.0) Ur Leukocyte Esterase Negative (Negative) Urine RBC 0-2 (0-2) Urine WBC 0-2 (0-5) Ur Squamous Epith Cells None (None-Few) Urine Bacteria None (None) Urine HCG, Qual Negative (Negative) 05/03/22 05/03/22 05/03/22 Range/Units 19:46 19:46 19:46 WBC 9.21 (4.50-11.00) K/uL RBC 3.70 L (4.00-5.20) m/uL Hgb 13.1 (12.0-16.0) gm/dL Hct 38.5 (33.0-51.0) % MCV 104 H (80-100) fL MCH 35 H (26-34) pg MCHC 34 (32-36) gm/dL RDW Coeff of Inez 12.6 (11.5-15.5) % Plt Count 266 (140-440) K/uL Neut % (Auto) 50.2 (42.0-72.0) % Lymph % (Auto) 40.6 (20-44) % [place] % (Auto) 6.2 (0.0-11.0) % Eos % (Auto) 2.6 (0.0-7.0) % Baso % (Auto) 0.3 (0.0-3.0) % Neut # (Auto) 4.62 (1.7-7.0) K/uL Lymph # (Auto) 3.74 H (0.90-2.90) K/uL [place] # (Auto) 0.60 (0.00-0.90) K/UL Eos # (Auto) 0.24 (0.00-0.50) K/uL Baso # (Auto) 0.03 (0.00-0.30) K/uL Abs Immat Gran (auto) 0.01 (0.00-0.30) K/uL Imm/Tot Granulo (auto) Not Reportable INR 0.90 L (0.91-1.10) Sodium (135-149) mmol/L Potassium (3.6-5.1) mmol/L Chloride (96-114) mmol/L Carbon Dioxide (20-32) mmol/L BUN (5-24) mg/dL Creatinine (0.5-1.5) mg/dL Estimated Creat Clear Estimated GFR ml/min Glucose (60-115) mg/dL Calcium (8.4-10.6) mg/dL Total Bilirubin 0.7 (0.1-1.5) mg/dL Direct Bilirubin 0.2 (0.0-0.5) mg/dL AST 40 H (12-35) U/L ALT 23 (4-35) U/L Alkaline Phosphatase 56 (40-150) U/L C-Reactive Protein < 0.5 L (0.5-1.0) mg/dL Total Protein 7.4 (6.0-8.3) g/dL Albumin 4.7 (3.3-5.0) g/dL Urine Color (Yellow) Urine Appearance (Clear) Urine pH (5.0-8.5) Ur Specific [place] (1.000-1.030) Urine Protein (Negative) Urine Glucose (UA) (Negative) Urine Ketones (Negative) Urine Blood (Negative) Urine Nitrite (Negative) Urine Bilirubin (Negative) Urine Urobilinogen (0.2-1.0) Ur Leukocyte Esterase (Negative) Urine RBC (0-2) Urine WBC (0-5) Ur Squamous Epith Cells (None-Few) Urine Bacteria (None) Urine HCG, Qual (Negative) Discharge Plan Discharge Clinical Impression: Blood in stool Patient Disposition: Home, Self-Care Condition: Stable Instructions: Rectal Bleeding (ED) Additional Instructions: Primary care in the following week to discuss next steps. Return at any time for acute worsening, significant abdominal pain, fevers, unusual rashes or bleeding. Prescriptions: No Action No Known Home Medications Follow Up/Referrals: Provider,Not a Local [Primary Care Provider] - Stand Alone Forms: [employer] Info Instructions
== END 2022-05-03 21:07 | disposition home or self-care (01) ==
PROVIDERS: Emergency Provider Emergency Medicine
DX: F17.210 Nicotine dependence, cigarettes, uncomplicated; K92.1 Melena
CPT/HCPCS: 36415; 80048; 80076; 81001; 81025; 85025; 85610; 86140; 87086; 99284

== ENCOUNTER 2023-11-12 16:09 | Emergency (ER) | payer OTHER, SELFPAY ==
[2023-11-12 16:11] VITALS: BP 144/107; PULSE 93; RESP 22; TEMP 36.3; O2SAT 100; BMI 20.1
--- NOTE | 2023-11-12 16:30 | XR_ITS ---
Patient: JOSÉ MIGUEL COBB Facility:?[facility] Patient ID:?[id number] Site Patient ID:?[id number]. Site :?[id number] Study:?XRay-Chest 1v portable-11/12/2023 5:23:33 PM Ordering Physician:VERONICA Final Report: INDICATION: Midsternal chest pain TECHNIQUE: 1 view chest radiograph COMPARISON: None. FINDINGS: Devices: None. Lung volumes are good. No focal or diffuse opacities. No pleural effusion. No pneumothorax. Heart size is normal. Normal mediastinal contours. No pneumomediastinum. Osseous structures appear normal. IMPRESSION: Normal chest radiograph. Dictated by Christie Perez MD @ 11/12/2023 5:34:34 PM Signed by:?Christie Perez MD @11/12/2023 5:34:34 PM (Electronic Signature)
--- NOTE | 2023-11-12 16:32 | ED.GENADULT ---
HPI - General Adult General Chief complaint: Chest Pain Stated complaint: MD straight back Time Seen by Provider: 11/12/23 16:14 History of Present Illness HPI narrative: Patient is a 28-year-old female who reports no significant medical history presents with chest pain starting this morning. She initially reported it is in her substernal area and it hurts when she pushes on her chest. She thought she might be having heartburn and was going to an ER. Upon arriving here she felt generally weak in her hands and feet she felt they were numb in her hands and feet and tingly and cramping bilaterally. The patient has had no history of heart disease, blood clots, she does have endometriosis and has irregular periods last menstrual period was a few months ago. She has had no abdominal pain. She has had really no shortness of breath diaphoresis nausea or vomiting. She was brought in by the paramedics to the ER. Denies medications at home, denies allergies and denies any street drug use. Related Data Home Medications Medication Instructions Recorded Confirmed No Known Home Medications 11/12/23 11/12/23 Allergies Allergy/AdvReac Type Severity Reaction Status Date / Time No Known Drug Allergies Allergy Verified 11/12/23 16:15 Review of Systems Status of ROS: Reports: 6 or more systems reviewed and unremarkable except as noted in History and below PFSH PFS Social History Smoking Status: Current every day smoker What tobacco products do you use: cigarettes Smoking packs per day: 0.5 Smoking cigarettes per day: 10.0 Years smoked: 15 Smoking pack-years: 7.50 Do you use any of these nicotine containing products: None Second hand tobacco smoke exposure: No How often do you have a drink containing alcohol: 4 or more times a week How many standard drinks containing alcohol do you have on a typical day: 1 or 2 AUDIT-C Alcohol total score: 4 Non-prescribed substance use: marijuana (any form) Exam Narrative: Exam Narrative: Objective: Patient's vital signs show elevated blood pressure, afebrile, O2 sat 100% on room air HEENT shows no facial asymmetry mouth clear patient is alert orient x3 Neck is supple Chest is clear no rales or wheezing Heart rhythm without murmur there is palpable parasternal chest wall pain Abdomen benign Extremities are no edema neurologic nonfocal, good peripheral perfusion noted Const: Vital Signs, click to edit/add: Vital Signs - 24 hr 11/12/23 16:11 11/12/23 17:14 11/12/23 17:30 Temperature 97.4 F L Pulse Rate 74 88 Pulse Rate [Pulse Oximeter] 93 Respiratory Rate 22 Blood Pressure [Le ft Upper Arm] 144/107 H Pulse Oximetry 100 100 100 Oxygen Delivery Me thod Room Air 11/12/23 17:35 11/12/23 18:02 Temperature Pulse Rate 85 Pulse Rate [Pulse Oximeter] 80 Respiratory Rate 18 Blood Pressure [Le ft Upper Arm] 132/88 Pulse Oximetry 100 99 Oxygen Delivery Me thod Room Air Course Vital Signs Vital signs: Initial Vital Signs Temperature 97.4 F L 11/12/23 16:11 Temperature Source Temporal Artery Scan 11/12/23 16:11 Pulse Rate 93 11/12/23 16:11 Respiratory Rate 22 11/12/23 16:11 Blood Pressure 144/107 H 11/12/23 16:11 Blood Pressure Mean 119 H 11/12/23 16:11 Blood Pressure Position Supine 11/12/23 16:11 Pulse Oximetry 100 11/12/23 16:11 Oxygen Delivery Method Room Air 11/12/23 16:11 Vital Signs Temperature 97.4 F L 11/12/23 16:11 Pulse Rate 93 11/12/23 16:11 Respiratory Rate 22 11/12/23 16:11 Blood Pressure 144/107 H 11/12/23 16:11 Pulse Oximetry 100 11/12/23 16:11 Oxygen Delivery Method Room Air 11/12/23 16:11 Temperature 97.4 F L 11/12/23 16:11 Pulse Rate 80 11/12/23 18:02 Respiratory Rate 18 11/12/23 18:02 Blood Pressure 132/88 11/12/23 18:02 Pulse Oximetry 99 11/12/23 18:02 Oxygen Delivery Method Room Air 11/12/23 18:02 Medications Administered Medications: Discontinued Medications Generic Name Dose Route Start Last Admin Trade Name Freq PRN Reason Stop Dose Admin Aspirin 324 mg 11/12/23 16:30 11/12/23 17:02 Aspirin 81 Mg Tab.Chew PO 11/12/23 16:31 324 mg ONCE ONE Administration Sodium Chloride 1,000 mls @ 6,000 mls/hr 11/12/23 16:30 11/12/23 17:46 0.9 % Sodium Chloride 1000 Ml IV 11/12/23 16:39 Infused .Q10M OJ Infusion Lorazepam 1 mg 11/12/23 16:30 11/12/23 17:02 Lorazepam 2 Mg/Ml Inj IVP 11/12/23 16:31 1 mg ONCE ONE Administration Pantoprazole Sodium 40 mg 11/12/23 16:30 11/12/23 17:02 Pantoprazole Sodium 40 Mg Inj IVP 11/12/23 16:31 40 mg ONCE ONE Administration Potassium Bicarbonate 25 meq 11/12/23 17:22 11/12/23 17:38 Potassium Bicarb 25 Meq Effervescent Tab PO 11/12/23 17:23 25 meq ONCE ONE Administration Medical Decision Making MDM Narrative Medical decision making narrative: 28-year-old white female with a history of reproducible chest pain, with likely hyperventilation with had bilateral hand and foot tingling and numbness and cramping. I think however given her presentation rule out acute coronary syndrome, rule out PE, rule out infection or electrolyte abnormality will be done. Labs will be done. Will get a D-dimer. Troponin, EKG which by my read shows sinus rhythm with sinus arrhythmia some artifact at the base. Will get a chest x-ray as well. Disposition pending findings. Will give Ativan 1 mg IV and she agrees to this this may help an anxiety component, will also give her aspirin 324 chewable and 1 L normal saline. Addendum 5:30 p.m.: Patient's EKG shows sinus rhythm with sinus arrhythmia some artifact at the baseline by my read, troponin of point of care 0, CRP is negative, patient's white count is elevated 12,800 hemoglobin is 16.2, MCV is slightly elevated at 103. D-dimer is negative. ER profile shows a low potassium at 3.1, the patient be given oral potassium bicarb 25 will call once now. AST and ALT are minimally elevated CRP is negative. Patient's lab studies continue to return negative she does have palpable chest wall pain insert this could be chest wall inflammation with some hyperventilation or anxiety is results. I think at this point she could try some ibuprofen or anti-inflammatory at home rest light activity recheck with regular doctor next couple of days. This is a for [facility] other labs continue to come back negative. Also of note is her test is negative. She reports that she ?missed the hat? with the urinalysis and was unable to leave a urine sample. Addendum 5:45 p.m. patient's acid was low a little bit was given some potassium replacement. Her pain is better, but she still has some parasternal pain that is tender to touch, I think she has a chest wall problem her troponin is negative her EKG looks reassuring. I think we can try some Aleve at home, light activity, will give her a Toradol on discharge here. Return if problems or concerns or recurrence shear significant other comfortable plan. Lab Data Labs: Lab Results 11/12/23 11/12/23 Range/Units 16:40 17:00 WBC 12.84 H (4.50-11.00) K/uL RBC 4.31 (4.00-5.20) m/uL Hgb 16.2 H (12.0-16.0) gm/dL Hct 44.2 (33.0-51.0) % MCV 103 H (80-100) fL MCH 38 H (26-34) pg MCHC 37 H (32-36) gm/dL RDW Coeff of Inez 12.4 (11.5-15.5) % Plt Count 285 (140-440) K/uL Neut % (Auto) 71.0 (42.0-72.0) % Lymph % (Auto) 21.3 (20-44) % [place] % (Auto) 6.1 (0.0-11.0) % Eos % (Auto) 1.2 (0.0-7.0) % Baso % (Auto) 0.2 (0.0-3.0) % Neut # (Auto) 9.10 H (1.7-7.0) K/uL Lymph # (Auto) 2.70 (0.90-2.90) K/uL [place] # (Auto) 0.80 (0.00-0.90) K/UL Eos # (Auto) 0.20 (0.00-0.50) K/uL Baso # (Auto) 0.00 (0.00-0.30) K/uL Abs Immat Gran (auto) 0.00 (0.00-0.30) K/uL Imm/Tot Granulo (auto) 0.2 % D-Dimer Quant (PE/DVT) 0.39 (0.00-0.50) ug/ml Sodium 138 (135-149) mmol/L Potassium 3.1 L (3.6-5.1) mmol/L Chloride 102 (96-114) mmol/L Carbon Dioxide 23 (20-32) mmol/L Anion Gap 13 (7-15) mEq/L BUN 9 (5-24) mg/dL Creatinine 0.6 (0.5-1.5) mg/dL Estimated Creat Clear 107.99 Estimated GFR 124 ml/min Glucose 112 (60-115) mg/dL Calcium 10.1 (8.4-10.6) mg/dL Total Bilirubin 1.3 (0.1-1.5) mg/dL Direct Bilirubin 0.1 (0.0-0.5) mg/dL AST 54 H (12-35) U/L ALT 51 H (4-35) U/L Alkaline Phosphatase 87 (40-150) U/L C-Reactive Protein < 0.5 L (0.5-1.0) mg/dL Total Protein 8.2 (6.0-8.3) g/dL Albumin 5.0 (3.3-5.0) g/dL HCG, Qual Negative (Negative) SARS-CoV-2 (PCR) Negative SARS-CoV-2 (Negative) Influenza Type A (PCR) Negative PCR FLU A (Negative) Influenza Type B (PCR) Negative PCR FLU B (Negative) RSV (PCR) Negative PCR RSV (Negative) POC Troponin I 0.00 L (0.01-0.04) ng/ml Discharge Plan Discharge Clinical Impression: Chest pain, Acute chest wall pain Patient Disposition: Home w/ Parent or Adult Condition: Improved Additional Instructions: Light activity, rest, Aleve 2 tablets twice a day for the next 5 days, follow-up with primary care in the next 3-4 days, return to ED sooner problems concerns worsening. Activity Level: Light activity Discharge Diet: Regular Prescriptions: No Action No Known Home Medications Follow Up/Referrals: Provider,Not a Local [Primary Care Provider] - Stand Alone Forms: [employer] Info Instructions
[2023-11-12 16:51] LABS: Basophils Percent Auto 0.2 % (0.0-3.0); Eosinophils Percent Auto 1.2 % (0.0-7.0); Hematocrit 44.2 % (33.0-51.0); Hemoglobin* 16.2 gm/dL (12.0-16.0); Immature Granulocytes Pct Auto 0.2 %; Lymphocytes Percent Auto 21.3 % (20-44); Mean Corpuscular HGB Conc 37 gm/dL (32-36); Mean Corpuscular Hemoglobin 38 pg (26-34); Mean Corpuscular Volume 103 fL (80-100); Monocytes Percent Auto 6.1 % (0.0-11.0); Platelet Count* 285 K/uL (140-440); RDW Coefficient of Variation % 12.4 % (11.5-15.5); Red Blood Count 4.31 m/uL (4.00-5.20); White Blood Count* 12.84 K/uL (4.50-11.00)
[2023-11-12 16:58] LABS: Slide Review Reflex No
--- OUTSIDE RECORDS SUMMARY | 2023-11-12 16:58 | XMS_ITS | Clinical Summary ---
Author Name Unknown Organization [facility] Address [address] [place] [address] Care Team Providers Care Crab Backer Name Role Phone Unavailable Primary Care Provider Unavailabl e Source Comments You are receiving this document as you are listed as the primary care provider,follow-up provider, or the patient has been referred to you for consultation.This is in compliance with the Medicare and[facility] EHR Incentive Program,which states Providers who transition their patient to another setting of careor provider of care or refers their patient to another provider of care shouldprovide summary care record for each transition of care or referral. [facility] Allergies No known active allergies Medications Medication Sig Dispensed Refills Start Date End Date Status ibuprofen (MOTRIN) 800 MG tablet Take 1 Tablet by mouth every 8 hours as needed for Pain. 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 Temperature - - Respiratory Rate - - Oxygen Saturation - - Inhaled Oxygen Concentration - - Weight - - Height - - Body Mass Index - - Plan of Treatment Health Maintenance Due Date Last Done Comments Cervical Cancer Screening Due 1993 Hep C Screening (Preventive Services) 1993 Pneumococcal (1 - PCV) 1999 HIV Screening (Preventive Services) 2009 HPV Vaccine (3 - 3-dose series) 08/28/2010 04/26/2010, 02/25/2010 Adult Preventive Visit 2011 HepB (1) 02/24/2012 COVID-19 Vaccine (2 - ) 03/03/2023 02/05/2021 Influenza (Season Ended) 2024 DTaP/Tdap/Td (6 - Tdap) 07/21/2025 07/21/19 16, 06/04/1997, 06/08/1994, Additional history exists Zoster/Shingles (1 of 2) 2043 Hib Completed 03/09/1994, 08/1993, 1993 IPV (Polio) Completed 06/04/1997, 08/1993, 1993 HepA Aged Out No longer eligi ble based on patient's age to complete this topic MCV4 Aged Out No longer eligi ble based on patient's age to complete this topic
[2023-11-12] MEDS: PANTOPRAZOLE SODIUM 40 MG INJ IVP (17:02)
[2023-11-12] MEDS: 0.9 % SODIUM CHLORIDE 1000 ml 1,000 ML 6000 ML IV (17:02)
[2023-11-12] MEDS: ASPIRIN 81 MG TAB.CHEW 324 MG PO (17:02)
[2023-11-12] MEDS: LORazepam 2 MG/ML inj 1 MG IVP (17:02)
[2023-11-12 17:05] LABS: Chloride* 102 mmol/L (96-114)
[2023-11-12 17:06] LABS: Potassium* 3.1 mmol/L (3.6-5.1); Sodium* 138 mmol/L (135-149)
[2023-11-12 17:08] LABS: Creatinine* 0.6 mg/dL (0.5-1.5); Est. Creatinine Clearance* 107.99; Estimated Glomerular Filt Rate 124 ml/min
[2023-11-12 17:09] LABS: Alanine Aminotransferase* 51 U/L (4-35); Alkaline Phosphatase* 87 U/L (40-150); Anion Gap 13 mEq/L (7-15); Aspartate Amino Transferase* 54 U/L (12-35); Bilirubin Direct* 0.1 mg/dL (0.0-0.5); Bilirubin Total* 1.3 mg/dL (0.1-1.5); Blood Urea Nitrogen* 9 mg/dL (5-24); Carbon Dioxide* 23 mmol/L (20-32); Glucose* 112 mg/dL (60-115); Total Protein* 8.2 g/dL (6.0-8.3)
[2023-11-12 17:10] LABS: Calcium* 10.1 mg/dL (8.4-10.6)
[2023-11-12 17:14] VITALS: PULSE 74; O2SAT 100
[2023-11-12 17:16] LABS: C Reactive Protein* < 0.5 mg/dL (0.5-1.0)
[2023-11-12 17:17] LABS: D Dimer Quantitative* 0.39 ug/ml (0.00-0.50); HCG Qualitative Serum* Negative (Negative)
[2023-11-12 17:30] VITALS: PULSE 88; O2SAT 100
[2023-11-12 17:35] VITALS: PULSE 85; O2SAT 100
[2023-11-12] MEDS: POTASSIUM BICARB 25 MEQ EFFERVESCENT TAB PO (17:38)
[2023-11-12 17:50] LABS: PCR FLU A Negative PCR FLU A (Negative); PCR FLU B Negative PCR FLU B (Negative); PCR RSV Negative PCR RSV (Negative); SARS PCR* Negative SARS-CoV-2 (Negative)
[2023-11-12 18:02] VITALS: BP 132/88; PULSE 80; RESP 18; O2SAT 99
== END 2023-11-12 18:04 | disposition home or self-care (01) ==
PROVIDERS: Emergency Provider Family Medicine
DX: R07.89 Other chest pain (principal)
CPT/HCPCS: 36415; 71045; 80048; 80076; 80306; 81001; 84484; 84703; 85025; 85379; 86140; 87086; 87631; 93005; 94761; 96374; 96375; 99284; 99285; A9270; C9113; J2060; J7030

== ENCOUNTER 2023-11-28 10:42 | Outpatient (CLI) | payer OTHER, SELFPAY ==
--- OUTSIDE RECORDS SUMMARY | 2023-11-28 10:52 | XMS_ITS | Clinical Summary ---
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
== END 2023-11-28 10:43 | disposition home or self-care (01) ==
PROVIDERS: PCP Family Medicine; Visit Provider Nurse Practitioner Family
DX: R10.11 Right upper quadrant pain (principal)
CPT/HCPCS: 80053; 82150; 83690; 87338

== ENCOUNTER 2023-11-29 07:26 | Outpatient (REF) | payer OTHER, SELFPAY ==
--- OUTSIDE RECORDS SUMMARY | 2023-11-29 07:31 | XMS_ITS | Clinical Summary ---
Author Organization [facility] Address [address] [place] [address] Care Team Providers Care Hospice Clinical Manager Name Role Phone Unavailable Primary Care Provider [...] - - Pulse 91 09/03/2020 7:10 AM HYPERBARIC TECHNICIAN Temperature - - Respiratory Rate - - [...]
[2023-11-29 08:25] LABS: H pylori Ag Stool* Negative (Negative)
== END 2023-11-29 07:27 | disposition home or self-care (01) ==
LOC: NPINS 07:26
PROVIDERS: PCP Family Medicine; Visit Provider Nurse Practitioner Family
DX: R10.11 Right upper quadrant pain (principal)
CPT/HCPCS: 87338

== ENCOUNTER 2023-11-30 16:46 | Outpatient (CLI) | payer OTHER, SELFPAY ==
--- OUTSIDE RECORDS SUMMARY | 2023-11-30 16:49 | XMS_ITS | Clinical Summary ---
Author Organization [facility] Address [address] [place] [address] Care Team Providers Care Surface Grinder Name Role Phone Unavailable Primary Care Provider [...] - - Pulse 91 09/03/2020 7:10 AM GARMENT FINISHER Temperature - - Respiratory Rate - - [...]
--- NOTE | 2023-11-30 17:00 | CRLHL7_ITS ---
For Patients: As a result of the Century Cures Act, medical imaging exams and procedure reports are released immediately into your electronic medical record. You may view this report before your referring provider. If you have questions, please contact your health care provider. INDICATION: Right upper quadrant pain TECHNIQUE: Conventional two-dimensional grayscale ultrasound of the right upper quadrant. COMPARISON: None. FINDINGS: The gallbladder is normal, with no evidence of stones. No gallbladder wall thickening or pericholecystic fluid is demonstrated. The patient is reportedly not tender over the gallbladder. No biliary ductal dilation is evident. The common bile duct measures 3 mm. The liver is normal in size, shape and echogenicity. The pancreas is within normal limits. The right kidney is unremarkable. The visualized portion of the abdominal aorta and inferior vena cava are negative. IMPRESSION: Negative right upper quadrant ultrasound. Dictated by Nuno Abreu MD @ 12/02/2023 10:02:04 AM (Electronically Signed)
== END 2023-11-30 16:47 | disposition home or self-care (01) ==
LOC: US 16:46
PROVIDERS: PCP Family Medicine; Visit Provider Nurse Practitioner Family
DX: R10.11 Right upper quadrant pain (principal)
CPT/HCPCS: 76705

== ENCOUNTER 2023-12-18 09:19 | Outpatient (CLI) | payer OTHER, SELFPAY ==
--- OUTSIDE RECORDS SUMMARY | 2023-12-18 09:23 | XMS_ITS | Clinical Summary ---
Author Organization [facility] Address [address] [place] [address] Care Team Providers Care Development Mgr Name Role Phone Unavailable Primary Care Provider [...] - - Pulse 91 09/03/2020 7:10 AM COUNTY SURVEYOR Temperature - - Respiratory Rate - - [...]
== END 2023-12-18 09:20 | disposition home or self-care (01) ==
PROVIDERS: PCP Family Medicine; Visit Provider Nurse Practitioner Family
DX: Z01.818 Encounter for other preprocedural examination (principal); K82.8 Other specified diseases of gallbladder; R94.8 Abnormal results of function studies of other organs and systems
CPT/HCPCS: 80076; 82150; 83690; 85025

== ENCOUNTER 2023-12-19 07:38 | Day surgery (SDC) | payer OTHER, SELFPAY ==
[2023-12-19] VITALS (13 sets, daily range): BP systolic 104–125; BP diastolic 62–90; PULSE 76–818; RESP 16–22; TEMP 36.3–36.7; O2SAT 94–100; BMI 20.1
[2023-12-19] MEDS: LACTATED RINGERS 1000 ML 1,000 ML 100 ML IV ×2 (07:25→09:44)
--- OUTSIDE RECORDS SUMMARY | 2023-12-19 07:40 | XMS_ITS | Clinical Summary ---
Author Organization [facility] Address [address] [place] [address] Care Team Providers Care Analyst Geochemical Prospecting Name Role Phone Unavailable Primary Care Provider [...] - - Pulse 91 09/03/2020 7:10 AM NIGHT TIME BABYSITTER Temperature - - Respiratory Rate - - [...]
[2023-12-19] MEDS: SODIUM CHLORIDE 0.9 % (FLUSH) 10 ML SYRINGE IVF (08:02)
[2023-12-19 08:09] LABS: Ur HCG Qualitative* Negative (Negative)
--- NOTE | 2023-12-19 08:43 | W.PM.H&PU ---
History & Physical Update History & Physical Update H&P Reviewed and patient assessed: No changes noted
[2023-12-19] MEDS: CEFAZOLIN 1 GM inj IVP (09:15)
[2023-12-19] MEDS: BUPIVACAINE 0.25% 30 ML INJECTION (09:21)
--- NOTE | 2023-12-19 10:05 | P.GSOP_ITS ---
Operative Note Date of procedure: 12/19/23 Pre-op diagnosis: 1. Chronic cholecystitis. Post-op diagnosis: Same Type of Procedure: 1. Laparoscopic cholecystectomy. Indications: 28-year-old female was seen in clinic for evaluation of right upper quadrant pain for the past month. She has been experiencing recurrent episodes of pain that radiated to her back. The pain became more constant and was worse after eating food. She was not sure if certain food made her symptoms worse. She denies any nausea or vomiting. The pain became so bothersome that she was only able to sleep on the left side. She did a trial of omeprazole for 2-3 weeks but did not notice any change in her pain. During her workup she was found to have elevated WBC of 12.8. A gallbladder ultrasound was obtained that showed no cholelithiasis and no evidence of cholecystitis. Patient was then referred for HIDA scan that showed ejection fraction of 23%. Patient did not feel well during her HIDA scan and had increasing her constant background of right upper quadrant pain. On clinical exam patient had tenderness to palpation in the right upper quadrant with equivocal Carbajal sign. Given patient's clinical history and her physical exam, chronic cholecystitis was suspected, and laparoscopic cholecystectomy was recommended. The procedure was discussed in de tail. The risks associated procedure including infection, bleeding, injury to intra-abdominal organs, and injury to the common bile duct were all discussed with the patient, and she agreed to proceed. Procedure Description: After discussing the risks and benefits of the procedure, the patient signed informed consent.? The operative site was marked and the patient was brought to the operating room and placed on the operating table in supine position.? Care was taken to pad the patient's pressure points.?? The patient was then intubated by anesthesia.?? The operative site was then prepped and draped in the usual sterile fashion.? A time-out was then performed. A 5-mm laparoscopy port was placed in the left upper quadrant guided by a 5-mm laparoscope placed into a translucent trochar.~ Passage through the layers of the abdominal wall was visualized with the laparoscope.~ A pneumoperitoneum was established. A 0-degree 5-mm laparoscope was advanced into the abdomen. The abdomen was briefly surveyed, and no adhesions were noted. A 10-mm port were placed infraumbilically and two more 5 mm ports were placed on the right under direct visualization by laparoscope. The camera was then changed to 10 mm 30- degree scope and placed into the abdomen through the 10 mm port. The left upper quadrant port entrance was examined and no injury to intra-abdominal organs was identified. The gallbladder was identified, the fundus grasped and retracted cephalad. The infundibulum was grasped and retracted laterally, exposing the peritoneum overlying the triangle of Calot. The duodenum was adherent to the gallbladder infundibulum with the with the adhesion. This was lysed with Metzenbaum scissors taking care of avoiding injury to the duodenum. The peritoneum overlying triangle of Calot was then divided and exposed in a blunt fashion and with hook cautery. Common bile duct was not identified but care was taken not to injure it. The cystic duct was clearly identified and bluntly dissected circumferentially. Cystic artery was identified and tissues around it were dissected off. The cystic artery and the cystic duct were clearly going into the gallbladder. The cystic duct was then doubly ligated with surgical clips on the patient's side and singly clipped on the gallbladder side and divided. The cystic artery was then similarly ligated with clips and divided as well. A prominent vein was noted on the lateral edge of the gallbladder fossa. This was going into the gallbladder. When divided with hook cautery, this vein continued to bleed. This vein was clipped with 5 mm clips. The gallbladder was further dissected from the liver bed in retrograde fashion using hookcautery. The gallbladder was placed into an Endo-Catch bag and removed through the infraumbilical incision. Surgical site was examined for bleeding. No bleeding was seen in the surgical field. The fascia of the infraumbilical incision was then closed with 0-0 vicryl using Bright Lyndsay needle under direct visualization. Pneumoperitoneum was completely reduced after viewing removal of the trocars under direct vision. The skin was then closed with 4-0 monocryl and steristrips were applied. Instrument, sponge, and needle counts were correct at closure and at the conclusion of the case. The patient was transferred to PACU in stable condition. Findings: No acute inflammation was noted. Wispy adhesions of large intestine to the abdominal wall in the right lower quadrant with no clear evidence of right inguinal hernia. Anesthesia: GETA Surgeon: Hugh Dotson MD Estimated blood loss (mL): 5 Specimen: Gallbladder Condition: stable Disposition: PACU
--- NOTE | 2023-12-19 10:12 | W.ANESCHARGE ---
Anesthesia Charges Start Date/Time Anesthesia Start Date: 12/19/23 Anesthesia Start Time: 09:03 Stop Date/Time Anesthesia Stop Date: 12/19/23 Anesthesia Stop Time: 10:04
--- NOTE | 2023-12-19 10:14 | W.ANESCHARGE ---
Anesthesia Charges Start Date/Time Anesthesia Start Date: 12/19/23 Anesthesia Start Time: 09:03 Stop Date/Time Anesthesia Stop Date: 12/19/23 Anesthesia Stop Time: 10:04
[2023-12-19] MEDS: MEPERIDINE 25 MG/ML INJ 12.5 MG IVP (10:21)
== END 2023-12-19 11:35 | disposition home or self-care (01) ==
PROVIDERS: Anesthesiology; PCP Family Medicine; Visit Provider Surgery
PROC: 0FT44ZZ Resection of Gallbladder, Percutaneous Endoscopic Approach (ICD-10-PCS; CPT 47562; principal; 2023-12-19 09:00)
DX: K81.1 Chronic cholecystitis (principal)
CPT/HCPCS: 47562; 00790; 81025; 88304; J0330; J0665; J0690; J1100; J2175; J2250; J2405; J2704; J3010; J3490; J7120

== ENCOUNTER 2024-02-02 09:12 | Outpatient (CLI) | payer OTHER, SELFPAY ==
--- OUTSIDE RECORDS SUMMARY | 2024-02-04 06:30 | XMS_ITS | Clinical Summary ---
Author Organization [facility] Address [address] [place] [address] Care Team Providers Care Colorectal Surgeon Name Role Phone Unavailable Primary Care Provider [...] - - Pulse 91 09/03/2020 7:10 AM RCP Temperature - - Respiratory Rate - - [...] Vaccine (2 - ) 03/03/2023 02/05/2021 Influenza (#1) 2024 DTaP/Tdap/Td (6 - Tdap) 07/21/2025 07/21/19 [...]
== END 2024-02-02 09:13 | disposition home or self-care (01) ==
LOC: NFLDREF 02-04 06:28
PROVIDERS: PCP Family Medicine; Referring Provider Family Medicine; Visit Provider Nurse Practitioner Family
DX: R71.8 Other abnormality of red blood cells (principal)
CPT/HCPCS: 82607; 82746

== ENCOUNTER 2024-03-13 10:58 | Emergency (ER) | payer OTHER, SELFPAY ==
[2024-03-13 11:01] VITALS: BP 136/97; PULSE 100; RESP 20; TEMP 36.6; O2SAT 99; BMI 20.1
--- NOTE | 2024-03-13 11:09 | ED_ITS ---
HPI - Abdominal Pain General Time Seen by Provider: 11:09 Date Seen: 03/13/24 Chief Complaint: Abdominal Pain Stated Complaint: Upper abdominal pain Time Seen by Provider: 03/13/24 11:02 Source: patient, RN notes reviewed and old records reviewed Mode of arrival: ambulatory Limitations: no limitations History of Present Illness HPI narrative: This 29-year-old female is coming in with upper abdominal discomfort starting this morning. She states it feels like a balloon is expanding in her epigastric area. She is having reflux symptoms with this. She had her gallbladder out on December 18 of this year here, had chronic cholecystitis. She states it took a month to diagnose the gallbladder. Her symptoms feel reminiscent of those issues. She is unclear if she did or did not have pancreatitis with this prior. She ate cold pizza for breakfast this morning, last alcohol was 2 glasses of wine last night. Around 830 she was just sitting at her desk this morning and started with the epigastric pain and pressure, reflux symptoms. She denies any nausea or vomiting. She had a normal soft stool this morning. She states baseline her stools are soft. She did have a brief illness Monday into Monday where she had nausea and vomiting, thought she just had a 24 hour flu. She has had no fevers, no night sweats. She has also had laparoscopic surgeries for ovarian cysts, this does not feel anything like that. She states she does not ovulate, very low chance for , did agree upon just confirming negative test. Note in review of her records, she does have history of endometriosis. elicited complaint: abdominal pain Related Data Home Medications ?Medication ?Instructions ?Recorded ?Confirmed progesterone micronized 200 mg 200 mg PO QHS 11/20/23 03/13/24 capsule (Prometrium) Previous Rx's ?Medication ?Instructions ?Recorded omeprazole 40 mg capsule,delayed 40 mg PO DAILY #14 caps 03/13/24 release Allergies Allergy/AdvReac Type Severity Reaction Status Date / Time No Known Drug Allergies Allergy Verified 12/19/23 07:47 Review of Systems Status of ROS Reports: 6 or more systems reviewed and unremarkable except as noted in History and below [facility] Medical History Ovarian cyst (03/11/13) ?N83.209 - Unspecified ovarian cyst, unspecified side (ICD-10) Fracture of rib (03/11/13) ?S22.39XA - Fracture of one rib, unspecified side, initial encounter for closed fracture (ICD-10) Surgical History Status post tonsillectomy ?Z90.89 - Acquired absence of other organs (ICD-10) Status post ovarian cystectomy ?Z98.890 - Other specified postprocedural states (ICD-10) ?Z87.42 - Personal history of other diseases of the female genital tract (ICD-10) Status post laparoscopy ?Z98.890 - Other specified postprocedural states (ICD-10) History of third molar tooth extraction ?K08.409 - Partial loss of teeth, unspecified cause, unspecified class (ICD- 10) Social History Narrative: Patient works in [employer] at the [employer]. . No children. Alcohol, no. Smoke marijuana. No formal exercise. Current everyday smoker, 1/2 pack per day. What is your current living situation?: I presently have a place to live Problems where you live: no known problems In the past 12 months, utilities in danger of being shut off: no In past 12 months, lack of transportation kept you from medical appts, meetings, work, or getting things needed for daily living: no In the past 12 mos, have been you worried that your food would run out before you had money to buy more?: never true In the past 12 mos, the food you bought just didn't last and you didn't have money to buy more?: never true Smoking Status: Current every day smoker What tobacco products do you use: cigarettes Smoking packs per day: 0.5 Smoking cigarettes per day: 10.0 Years smoked: 15 Smoking pack-years: 7.50 Do you use any of these nicotine containing products: None Second hand tobacco smoke exposure: No How often do you have a drink containing alcohol: 4 or more times a week How many standard drinks containing alcohol do you have on a typical day: 1 or 2 AUDIT-C Alcohol total score: 4 Non-prescribed substance use: marijuana (any form) Non-prescribed substance use details: daily Caffeine: Yes How often does anyone, including family, friends and others, physically hurt you : never How often does anyone, including family, friends and others, insult or talk down to you: never How often does anyone, including family, friends and others, threaten you with harm: never How often does anyone, including family, friends and others, scream or curse at you: never Little interest or pleasure in doing things: not at all Feeling down, depressed, or hopeless: not at all Are you using contraception or practicing any form of control: No Exam Const: Vital Signs, click to edit/add: Vital Signs - 24 hr 03/13/24 11:01 03/13/24 11:38 03/13/24 12:30 Temperature 97.8 F Pulse Rate [Pulse Oximeter] 100 Respiratory Rate 20 Blood Pressure [Le ft Upper Arm] 136/97 H 147/104 H Pulse Oximetry 99 99 Oxygen Delivery Me thod Room Air 03/13/24 12:32 Temperature Pulse Rate [Pulse Oximeter] 89 Respiratory Rate 16 Blood Pressure [Le ft Upper Arm] Pulse Oximetry 99 Oxygen Delivery Me thod Room Air This 29-year-old female is alert, interactive, no apparent distress, slender frame. Pupils equal round reactive, sclera clear. Speaking in full sentences. Looks uncomfortable at times, hanging onto her epigastric area. Neck supple, no adenopathy. Lungs are clear, good air entry, no wheezing or crackles. CV regular rate and rhythm, no murmur, normal S1-S2, no S3-S4. Abdomen is soft, do hear bowel sounds which sound normal. Abdomen is not distended, there is no rebound or guarding. She has some mild diffuse tenderness actually throughout the abdomen again without rebound or guarding. Do not feel any masses, no organomegaly. Skin without any rash or jaundice noted. Patient was ambulatory into the ED of her own accord. Documenting provider has reviewed patient's vital signs: yes Course Course ED Course: This is a 29-year-old female with complaint of epigastric discomfort or expanding sensation with heartburn feeling. Will have her try GI cocktail. Reviewed with her that we will certainly look at a lipase and consider hardy creatitis. Her gallbladder is gone, could be other etiology and will get a lipase. We will consider pain medicine if the GI cocktail does not work at all. This could be complications of a recent viral gastroenteritis like an ileus developing, prior surgeries could make partial small-bowel obstruction possible. She does not have any nausea or vomiting with this though currently, she understands we may need to be consider imaging, possible CT if need be. Will confirm negative status, look at urine as well but doubt urinary system etiology of her symptoms at this time. Reevaluation(s) Time of Reevaluation #1: 12:24 Reevaluation #1: Reported to patient that her lipase is mildly elevated. She states her symptoms arm proved after the GI cocktail, does feel better. She still has some underlying discomfort but nothing severe or significant. Will try IV Toradol, see if she gets relief with that. We will proceed with CT imaging of her abdomen and pelvis with IV contrast to look at the pancreas closer. Time of Reevaluation #2: 14:02 Reevaluation #2: Reviewed with José Miguel that her CT of her abdomen pelvis is not showing any acute pathology, there is no evidence of pancreatitis. We reviewed that her lipase was 353, just mildly elevated. She is feeling better. She states she is being monitored for an elevated MCV. Discussed that I recommend avoidance of alcohol for her. She will follow up in clinic, lipase can be rechecked in the next 1-2 weeks, sooner if worsening or ongoing symptoms. Will try short course of omeprazole for her. If she has ongoing GI symptoms, endoscopy could be considered, she can talk to her primary about this. She is hungry, wants to eat and wants to go home. I do think that this is fine, if she notes that symptoms worsen with eating, she will need to return. Vital Signs Vital signs: Initial Vital Signs Temperature 97.8 F 03/13/24 11:01 Temperature Source Temporal Artery Scan 03/13/24 11:01 Pulse Rate 100 03/13/24 11:01 Respiratory Rate 20 03/13/24 11:01 Blood Pressure 136/97 H 03/13/24 11:01 Blood Pressure Mean 110 H 03/13/24 11:01 Blood Pressure Position Sitting 03/13/24 11:01 Pulse Oximetry 99 03/13/24 11:01 Oxygen Delivery Method Room Air 03/13/24 11:01 Vital Signs Temperature 97.8 F 03/13/24 11:01 Pulse Rate 100 03/13/24 11:01 Respiratory Rate 20 03/13/24 11:01 Blood Pressure 136/97 H 03/13/24 11:01 Pulse Oximetry 99 03/13/24 11:01 Oxygen Delivery Method Room Air 03/13/24 11:01 Temperature 97.8 F 03/13/24 11:01 Pulse Rate 89 03/13/24 12:32 Respiratory Rate 16 03/13/24 12:32 Blood Pressure 147/104 H 03/13/24 12:30 Pulse Oximetry 99 03/13/24 12:32 Oxygen Delivery Method Room Air 03/13/24 12:32 Medications Administered Medications: Discontinued Medications Generic Name Dose Route Start Last Admin Trade Name Freq PRN Reason Stop Dose Admin Sodium Chloride 1,000 mls @ 1,000 mls/hr 03/13/24 11:44 03/13/24 13:26 0.9 % Sodium Chloride 1000 Ml IV 03/13/24 12:43 Infused .Q1H OJ Infusion Ketorolac Tromethamine 15 mg 03/13/24 12:25 03/13/24 12:30 Ketorolac 15 Mg/Ml Inj IVP 03/13/24 12:26 15 mg ONCE ONE Administration Lidocaine/Aluminum/Magnesium/Simeth 30 ml 03/13/24 11:16 03/13/24 11:30 Gi Cocktail (Visc Lido/Antacid) 30 Ml PO 03/13/24 11:17 30 ml ONCE ONE Administration MDM - Abdominal Pain Lab Data Attestation: I reviewed the patient's lab results. Labs: Lab Results 03/13/24 03/13/24 03/13/24 Range/Units 11:30 11:40 12:07 WBC 6.75 (4.50-11.00) K/uL RBC 3.95 L (4.00-5.20) m/uL Hgb 14.4 (12.0-16.0) gm/dL Hct 41.1 (33.0-51.0) % MCV 104 H (80-100) fL MCH 37 H (26-34) pg MCHC 35 (32-36) gm/dL RDW Coeff of Inez 12.1 (11.5-15.5) % Plt Count 253 (140-440) K/uL Neut % (Auto) 45.6 (42.0-72.0) % Lymph % (Auto) 44.7 H (20-44) % Finney % (Auto) 7.7 (0.0-11.0) % Eos % (Auto) 1.3 (0.0-7.0) % Baso % (Auto) 0.7 (0.0-3.0) % Neut # (Auto) 3.07 (1.7-7.0) K/uL Lymph # (Auto) 3.00 H (0.90-2.90) K/uL Finney # (Auto) 0.50 (0.00-0.90) K/UL Eos # (Auto) 0.09 (0.00-0.50) K/uL Baso # (Auto) 0.05 (0.00-0.30) K/uL Abs Immat Gran (auto) 0.00 (0.00-0.30) K/uL Imm/Tot Granulo (auto) 0.0 % Sodium 137 (135-149) mmol/L Potassium 3.7 (3.6-5.1) mmol/L Chloride 103 (96-114) mmol/L Carbon Dioxide 24 (20-32) mmol/L Anion Gap 10 (7-15) mEq/L BUN 7 (5-24) mg/dL Creatinine 0.6 (0.5-1.5) mg/dL Estimated Creat Clear 107.01 Estimated GFR 123 ml/min Glucose 98 (60-115) mg/dL Lactate 3.1 H (0.5-1.9) mmol/L Calcium 9.7 (8.4-10.6) mg/dL Total Bilirubin 0.6 (0.1-1.5) mg/dL Direct Bilirubin 0.4 (0.0-0.5) mg/dL AST 59 H (12-35) U/L ALT 31 (4-35) U/L Alkaline Phosphatase 63 (40-150) U/L C-Reactive Protein < 0.5 L (0.5-1.0) mg/dL Total Protein 7.1 (6.0-8.3) g/dL Albumin 4.6 (3.3-5.0) g/dL Lipase 353 H (23-300) U/L Urine Color Yellow (Yellow) Urine Appearance Clear (Clear) Urine pH 8.5 (5.0-8.5) Ur Specific [place] 1.020 (1.000-1.030) Urine Protein Negative (Negative) Urine Glucose (UA) Negative (Negative) Urine Ketones Trace A (Negative) Urine Blood Negative (Negative) Urine Nitrite Negative (Negative) Urine Bilirubin Negative (Negative) Urine Urobilinogen 0.2 (0.2-1.0) Ur Leukocyte Esterase Negative (Negative) Urine RBC 0-2 (0-2) Urine WBC 0-2 (0-5) Ur Squamous Epith Cells None (None-Few) Urine Bacteria None (None) Urine HCG, Qual Negative (Negative) Ethyl Alcohol 0.03 (0.01-0.03) % Lab Acknowledgement Test Added Imaging Data CT scan - abdomen: Attestation: I have reviewed the pertinent imaging results. Radiologist's impression: Patient: JOSÉ MIGUEL COBB Facility:?[facility] Patient ID:?[id number] Site Patient ID:?[id number]. Site :?[id number] Study:?CT-Abdomen/Pelvis 54 CC ISOVUE 370-03/13/2024 1:01:43 PM Ordering Physician:Valentine Blake Final Report: INDICATION: Epigastric pain. Elevated lipase. COMPARISON: May 04, 2020 TECHNIQUE: CT examination of the abdomen and pelvis was performed following the uneventful intravenous administration of 54 cc of Isovue 370. Thin section axial images were obtained from the lung bases through the pubic symphysis. Oral contrast was not administered. Please note that all CT scans at this facility use dose modulation, iterative reconstruction, and/or weight-based dosing when appropriate to reduce radiation dose to as low as reasonably achievable. FINDINGS: LUNG BASES: The lung bases as visualized appear normal.The heart size is normal at the lung bases. LIVER/BILIARY SYSTEM:The liver is normal in size and configuration. There is no focal mass and there is no intra- or extra hepatic biliary ductal dilatation.Hepatic steatosis. Surgically absent gallbladder. ADRENALS: Normal KIDNEYS, URETERS and BLADDER:The kidneys appear normal. No visible mass, calculus or hydronephrosis. The ureters and bladder as visualized appear normal. SPLEEN:Normal appearance. PANCREAS: Appears normal. There is no evidence of pancreatitis or complications of pancreatitis on this exam. Placed out pancreatitis may exist without CT findings. RETROPERITONEUM and MESENTERY: There is no mass, adenopathy or aortic aneurysm. GASTROINTESTINAL SYSTEM: There is no evidence of diverticulitis, colitis, mechanical obstruction, or appendicitis. The small bowel as visualized appears normal.No acute appearing GI finding PELVIS: No mass, adenopathy or free fluid. OSSEOUS STRUCTURES and ABDOMINAL WALL: There is an age-appropriate appearance of the osseous structures.No significant abdominal wall defect. OTHER: No free fluid or free air. IMPRESSION: 1. There is no evidence of pancreatitis or complications of pancreatitis by CT. Pancreatitis may exist without CT findings. 2. The examination is otherwise unremarkable except for incidental nonacute appearing findings as above. Please note that all CT scans at this facility use dose modulation, iterative reconstruction, and/or weight-based dosing when appropriate to reduce radiation dose to as low as reasonably achievable. Dictated by Aníbal Roman MD @ 03/13/2024 1:12:12 PM (Electronic Signature) Discharge Plan Discharge Clinical Impression: Acute epigastric pain, Heartburn, Elevated lipase Patient Disposition: Home, Self-Care Condition: Stable Instructions: GERD (Gastroesophageal Reflux Disease) (ED), Epigastric Pain (ED) Additional Instructions: I recommend that you avoid alcohol, could certainly be contributing to your elevated MCV as well as your current symptoms that you had today. You do need to have your lipase rechecked within the next 1-2 weeks, sooner if recurrent symptoms. Will put you on a course of omeprazole for 2 weeks, see if there could be a component of gastritis for you. If you have ongoing issues, EGD may need to be considered. Return if you develop recurrent symptoms for re- evaluation. Activity Level: Activity as Tolerated Prescriptions: New omeprazole 40 mg capsule,delayed release(DR/EC) 40 mg PO DAILY Qty: 14 0RF No Action progesterone micronized [Prometrium] 200 mg capsule 200 mg PO QHS Rx Instructions: every 3-4 months Follow Up/Referrals: Kody Balderas MD [Primary Care Provider] - Stand Alone Forms: Ruth [facility]stad[facility] – [employer] Info Instructions
--- OUTSIDE RECORDS SUMMARY | 2024-03-13 11:28 | XMS_ITS | Clinical Summary ---
Author Organization [facility] Address [address] [place] [address] Care Team Providers Care Radarman Name Role Phone Unavailable Primary Care Provider [...] - - Pulse 91 09/03/2020 7:10 AM DIRECTOR [employer]ACLE DATABASE Temperature - - Respiratory Rate - - [...] (1) 02/24/2012 COVID-19 Vaccine (2 - ) 03/03/2024 02/05/2021 Influenza (#1) 2024 DTaP/Tdap/Td (6 - [...]
[2024-03-13] MEDS: GI COCKTAIL (VISC LIDO/ANTACID) 30 ML PO (11:30)
[2024-03-13 11:35] LABS: Lactate* 3.1 mmol/L (0.5-1.9)
[2024-03-13 11:38] VITALS: O2SAT 99
[2024-03-13 11:40] LABS: Basophils Absolute Auto 0.05 K/uL (0.00-0.30); Basophils Percent Auto 0.7 % (0.0-3.0); Eosinophils Absolute Auto 0.09 K/uL (0.00-0.50); Eosinophils Percent Auto 1.3 % (0.0-7.0); Hematocrit 41.1 % (33.0-51.0); Hemoglobin* 14.4 gm/dL (12.0-16.0); Lymphocytes Percent Auto 44.7 % (20-44); Mean Corpuscular HGB Conc 35 gm/dL (32-36); Mean Corpuscular Hemoglobin 37 pg (26-34); Mean Corpuscular Volume 104 fL (80-100); Monocytes Percent Auto 7.7 % (0.0-11.0); Neutrophils Absolute Auto 3.07 K/uL (1.7-7.0); Neutrophils Percent Auto 45.6 % (42.0-72.0); Platelet Count* 253 K/uL (140-440); RDW Coefficient of Variation % 12.1 % (11.5-15.5); Red Blood Count 3.95 m/uL (4.00-5.20); White Blood Count* 6.75 K/uL (4.50-11.00)
[2024-03-13 11:42] LABS: Slide Review Reflex No
[2024-03-13 11:49] LABS: Appearance Urine Clear (Clear); Bilirubin Urine Negative (Negative); Blood Urine Negative (Negative); Color Urine Yellow (Yellow); Glucose Urine Negative (Negative); Ketones Urine Trace (Negative); Leukocyte Esterase Urine Negative (Negative); Nitrite Urine Negative (Negative); Protein Urine Negative (Negative); Urobilinogen Urine 0.2 (0.2-1.0); pH Urine 8.5 (5.0-8.5)
[2024-03-13 11:55] LABS: Albumin* 4.6 g/dL (3.3-5.0); Chloride* 103 mmol/L (96-114)
[2024-03-13 11:56] LABS: Potassium* 3.7 mmol/L (3.6-5.1); Sodium* 137 mmol/L (135-149)
[2024-03-13 11:58] LABS: Alkaline Phosphatase* 63 U/L (40-150); Anion Gap 10 mEq/L (7-15); Aspartate Amino Transferase* 59 U/L (12-35); Bilirubin Direct* 0.4 mg/dL (0.0-0.5); Bilirubin Total* 0.6 mg/dL (0.1-1.5); Blood Urea Nitrogen* 7 mg/dL (5-24); Carbon Dioxide* 24 mmol/L (20-32); Creatinine* 0.6 mg/dL (0.5-1.5); Est. Creatinine Clearance* 107.01; Estimated Glomerular Filt Rate 123 ml/min; Total Protein* 7.1 g/dL (6.0-8.3)
[2024-03-13 11:59] LABS: Alanine Aminotransferase* 31 U/L (4-35); Calcium* 9.7 mg/dL (8.4-10.6); Glucose* 98 mg/dL (60-115); Lipase* 353 U/L (23-300)
[2024-03-13 12:02] LABS: C Reactive Protein* < 0.5 mg/dL (0.5-1.0)
[2024-03-13] MEDS: 0.9 % SODIUM CHLORIDE 1000 ml 1,000 ML IV (12:05)
[2024-03-13 12:08] LABS: Ur HCG Qualitative* Negative (Negative)
[2024-03-13 12:15] LABS: RBC Urine 0-2 (0-2); WBC Urine 0-2 (0-5)
--- NOTE | 2024-03-13 12:19 | CRLHL7_ITS ---
For Patients: As a result of the Century Cures Act, medical imaging exams and procedure reports are released immediately into your electronic medical record. You may view this report before your referring provider. If you have questions, please contact your health care provider. INDICATION: Epigastric pain. Elevated lipase. COMPARISON: May 04, 2020 TECHNIQUE: CT examination of the abdomen and pelvis was performed following the uneventful intravenous administration of 54 cc of Isovue 370. Thin section axial images were obtained from the lung bases through the pubic symphysis. Oral contrast was not administered. Please note that all CT scans at this facility use dose modulation, iterative reconstruction, and/or weight-based dosing when appropriate to reduce radiation dose to as low as reasonably achievable. FINDINGS: LUNG BASES: The lung bases as visualized appear normal.The heart size is normal at the lung bases. LIVER/BILIARY SYSTEM:The liver is normal in size and configuration. There is no focal mass and there is no intra- or extra hepatic biliary ductal dilatation.Hepatic steatosis. Surgically absent gallbladder. ADRENALS: Normal KIDNEYS, URETERS and BLADDER:The kidneys appear normal. No visible mass, calculus or hydronephrosis. The ureters and bladder as visualized appear normal. SPLEEN:Normal appearance. PANCREAS: Appears normal. There is no evidence of pancreatitis or complications of pancreatitis on this exam. Placed out pancreatitis may exist without CT findings. RETROPERITONEUM and MESENTERY: There is no mass, adenopathy or aortic aneurysm. GASTROINTESTINAL SYSTEM: There is no evidence of diverticulitis, colitis, mechanical obstruction, or appendicitis. The small bowel as visualized appears normal.No acute appearing GI finding PELVIS: No mass, adenopathy or free fluid. OSSEOUS STRUCTURES and ABDOMINAL WALL: There is an age-appropriate appearance of the osseous structures.No significant abdominal wall defect. OTHER: No free fluid or free air. IMPRESSION: 1. There is no evidence of pancreatitis or complications of pancreatitis by CT. Pancreatitis may exist without CT findings. 2. The examination is otherwise unremarkable except for incidental nonacute appearing findings as above. Please note that all CT scans at this facility use dose modulation, iterative reconstruction, and/or weight-based dosing when appropriate to reduce radiation dose to as low as reasonably achievable. Dictated by Aníbal Roman MD @ 03/13/2024 1:12:12 PM (Electronically Signed)
[2024-03-13 12:30] VITALS: BP 147/104
[2024-03-13] MEDS: KETOROLAC 15 MG/ML inj IVP (12:30)
[2024-03-13 12:32] VITALS: PULSE 89; RESP 16; O2SAT 99
[2024-03-13 12:39] LABS: Ethanol* 0.03 % (0.01-0.03)
== END 2024-03-13 14:12 | disposition home or self-care (01) ==
PROVIDERS: Emergency Provider Family Medicine; PCP Family Medicine
DX: R10.13 Epigastric pain (principal)
CPT/HCPCS: 36415; 74177; 80053; 81001; 81025; 82077; 82248; 83605; 83690; 85025; 86140; 94761; 96374; 99284; A9270; J1885; J7030; Q9967

== ENCOUNTER 2024-04-19 12:43 | Emergency (ER) | payer OTHER, SELFPAY ==
[2024-04-19 13:12] VITALS: BP 153/85; PULSE 100; RESP 18; TEMP 36.7; BMI 19.2
--- NOTE | 2024-04-19 13:19 | ED.ABDPAIN ---
HPI - Abdominal Pain General Time Seen by Provider: 13:19 Date Seen: 04/19/24 Chief Complaint: Abdominal Pain Stated Complaint: abdominal pain Time Seen by Provider: 04/19/24 13:19 Source: patient and RN notes reviewed Mode of arrival: ambulatory Limitations: no limitations History of Present Illness HPI narrative: Lynn is a very pleasant 29-year-old female with a history of tobacco use, recent cholecystectomy, chronic abdominal pain who comes to the emergency room for evaluation regarding feeling worse. Patient notes that over the past 3 days she has been experiencing nausea vomiting and diarrhea. This is been nonbloody. She describes the diarrhea as rather foamy and green. She has not been around any ill contacts, does not been traveling, has not used antibiotics nor has she been changing any diapers. In October she started noticing aches and pains and thought this was because she had ovarian cyst. She had ultrasounds of her ovaries many times. They really could not find anything to explain her discomfort. In December it was discovered that she had gallbladder dysfunction on a HIDA scan ordered by nurse practitioner Patricia De La Torre. She notes when she got the gallbladder out she was actually okay for a few weeks. However than her lower abdominal pain returned. She notes that in the past few days she has actually had more right lower quadrant pain then in the past. She feels like it is different than what she has experienced and is sharper than usual. She is worried about an appendicitis. Patient notes she was seen here a couple of weeks ago and had a CT scan. She notes that she has a B12 deficiency and anemia. She notes that she does not ovulate is not on control but does not think she could be . She is sexually active. Denies any vaginal discharge or possibility of STI. No known fevers. Has had a cough and may be slightly increased cough over the past few days. Related Data Allergies Allergy/AdvReac Type Severity Reaction Status Date / Time No Known Drug Allergies Allergy Verified 12/19/23 07:47 Review of Systems Status of ROS Reports: 10 or more systems reviewed and unremarkable except as noted in History and below Const Reports: fatigue; Denies: fever or chills Eyes Denies: change in vision ENMT Denies: neck pain or nasal congestion Cardio Denies: chest pain, swelling of feet/ankles or shortness of breath with exertion Resp Reports: cough; Denies: shortness of breath GI Reports: abdominal pain, nausea, vomiting and diarrhea; Denies: blood in stool Denies: painful urination Musculo Denies: neck pain or extremity pain Endo Reports: fatigue [facility], [facility] Medical History Ovarian cyst (03/11/13) ?N83.209 - Unspecified ovarian cyst, unspecified side (ICD-10) Fracture of rib (03/11/13) ?S22.39XA - Fracture of one rib, unspecified side, initial encounter for closed fracture (ICD-10) Surgical History Status post tonsillectomy ?Z90.89 - Acquired absence of other organs (ICD-10) Status post ovarian cystectomy ?Z98.890 - Other specified postprocedural states (ICD-10) ?Z87.42 - Personal history of other diseases of the female genital tract (ICD-10) Status post laparoscopy ?Z98.890 - Other specified postprocedural states (ICD-10) History of third molar tooth extraction ?K08.409 - Partial loss of teeth, unspecified cause, unspecified class (ICD-10) Social History Narrative: Patient works in [employer] at the [employer]. . No children. Alcohol, no. Smoke marijuana. No formal exercise. Current everyday smoker, 1/2 pack per day. What is your current living situation?: I presently have a place to live Problems where you live: no known problems In the past 12 months, utilities in danger of being shut off: no In past 12 months, lack of transportation kept you from medical appts, meetings, work, or getting things needed for daily living: no In the past 12 mos, have been you worried that your food would run out before you had money to buy more?: never true In the past 12 mos, the food you bought just didn't last and you didn't have money to buy more?: never true Smoking Status: Current every day smoker What tobacco products do you use: cigarettes Smoking packs per day: 0.5 Smoking cigarettes per day: 10.0 Years smoked: 15 Smoking pack-years: 7.50 Do you use any of these nicotine containing products: None Second hand tobacco smoke exposure: No How often do you have a drink containing alcohol: 4 or more times a week How many standard drinks containing alcohol do you have on a typical day: 1 or 2 AUDIT-C Alcohol total score: 4 Non-prescribed substance use: marijuana (any form) Non-prescribed substance use details: daily Caffeine: Yes How often does anyone, including family, friends and others, physically hurt you: never How often does anyone, including family, friends and others, insult or talk down to you: never How often does anyone, including family, friends and others, threaten you with harm: never How often does anyone, including family, friends and others, scream or curse at you: never Little interest or pleasure in doing things: not at all Feeling down, depressed, or hopeless: not at all Are you using contraception or practicing any form of control: No Exam Narrative: Exam Narrative: Lynn is alert and oriented. Slightly raspy voice. Mentating normally. Some discomfort with movement in the bed. Eyes are clear. Oral cavity with moist mucous membranes. Heart with a regular rate and rhythm and lungs are of with decreased breath sounds in the right lobe lung base. Few crackles noted in the apices bilaterally. Abdomen is soft. Minimal tenderness elicited with palpation in the right lower quadrant. No rebound tenderness. Straight leg raise and internal external rotation of the hip without pain. Moving the bed however does increase patient's discomfort. Lower extremities without edema and moving without difficulty. Const: Vital Signs, click to edit/add: Vital Signs - 24 hr 04/19/24 13:12 04/19/24 14:56 Temperature 98.1 F 97.9 F Pulse Rate [Pulse Oximeter] 100 83 Respiratory Rate 18 18 Blood Pressure [Ri ght Upper Arm] 153/85 H 129/97 H Pulse Oximetry 99 Oxygen Delivery Me thod Room Air Room Air Documenting provider has reviewed patient's vital signs: yes Course Course ED Course: Differential diagnosis includes but is not limited to acute appendicitis, enterocolitis, colitis, COVID, ovarian cyst. I did explain to patient that her ongoing aches and pains since October would probably prove a challenge in the ER to diagnose. However given the acute symptoms of nausea vomiting diarrhea and right lower quadrant pain over the past few days I do think it would be platt to check for leukocytosis, elevated CRP, UTI and COVID in the ED today. She is in agreement with that plan. She is receptive to Toradol and Zofran via IV for pain and nausea control. Reevaluation(s) Reevaluation #1: Laboratory values are reassuring with a normal white count 10 CRP. Currently awaiting triple swab. Reevaluation #2: I was notified by nursing staff the patient is pulling on her leads and wants to go home. She has been waiting here for some time although it is a full ER. Her triple swab has just been returned and I will be speaking to her about her results. Vital Signs Vital signs: Initial Vital Signs Temperature 98.1 F 04/19/24 13:12 Temperature Source Temporal Artery Scan 04/19/24 13:12 Pulse Rate 100 04/19/24 13:12 Pulse Rhythm Regular 04/19/24 13:12 Respiratory Rate 18 04/19/24 13:12 Blood Pressure 153/85 H 04/19/24 13:12 Blood Pressure Mean 107 H 04/19/24 13:12 Blood Pressure Position Sitting 04/19/24 13:12 Oxygen Delivery Method Room Air 04/19/24 13:12 Vital Signs Temperature 98.1 F 04/19/24 13:12 Pulse Rate 100 04/19/24 13:12 Respiratory Rate 18 04/19/24 13:12 Blood Pressure 153/85 H 04/19/24 13:12 Oxygen Delivery Method Room Air 04/19/24 13:12 Temperature 97.9 F 04/19/24 14:56 Pulse Rate 83 04/19/24 14:56 Respiratory Rate 18 04/19/24 14:56 Blood Pressure 129/97 H 04/19/24 14:56 Pulse Oximetry 99 04/19/24 14:56 Oxygen Delivery Method Room Air 04/19/24 14:56 Medications Administered Medications: Discontinued Medications Generic Name Dose Route Start Last Admin Trade Name Freq PRN Reason Stop Dose Admin Ketorolac Tromethamine 15 mg 04/19/24 13:44 04/19/24 14:13 Ketorolac 15 Mg/Ml Inj IVP 04/19/24 13:45 15 mg ONCE ONE Administration Ondansetron HCl 4 mg 04/19/24 13:44 04/19/24 14:10 Ondansetron 2 Mg/Ml Inj IVP 04/19/24 13:45 4 mg ONCE ONE Administration MDM - Abdominal Pain MDM Narrative Medical decision making narrative: 1. Abdominal pain-at this time patient has a normal white count and CRP. Patient's main concern was right lower quadrant pain thus I did not do lipase as she had been worked up for pancreatitis 3 weeks ago in the ED. Did review the results of the CT from that time. Given reassuring findings I do not suggest CT at this time. The nausea vomiting and diarrhea appear to be new and likely viral in nature. Patient notes she is feeling much better after Toradol 15 mg and Zofran 4 mg IV. Would like her to push fluids as much as she can at home. We are currently in conservation for fluids at this time. Patient had a normal creatinine and BUN as well as no evidence of ketones on her urinalysis and therefore elected not to give fluids with to follow p.o. hydration. 2. Nausea vomiting diarrhea-improved. I did offer Zofran as needed for nausea. Patient declined. Recommend against Imodium. 3. Cough-chest x-ray without evidence of pneumonia. COVID negative. 4. Disposition-home at this time. Patient has no personal or family history of autoimmune illnesses, ulcerative colitis, Crohn's disease or celiac disease. However, she does describe weight loss and soft stools in t the past year. Will add an IgA trans gluten antibody test today. Did explain that it is not very sensitive but is if it is positive it is concerning for celiac. Also recommend follow-up with our surgeons for consideration of colonoscopy. Return to the emergency room as needed. Patient again feels better and wants to go home. Medical Records Attestation: I reviewed the patient's medical records. Lab Data Attestation: I reviewed the patient's lab results. Labs: Lab Results 04/19/24 04/19/24 Range/Units 13:58 15:50 WBC 9.32 (4.50-11.00) K/uL RBC 4.17 (4.00-5.20) m/uL Hgb 14.9 (12.0-16.0) gm/dL Hct 42.2 (33.0-51.0) % MCV 101 H (80-100) fL MCH 36 H (26-34) pg MCHC 35 (32-36) gm/dL RDW Coeff of Inez 11.5 (11.5-15.5) % Plt Count 251 (140-440) K/uL Neut % (Auto) 63.1 (42.0-72.0) % Lymph % (Auto) 26.5 (20-44) % [place] % (Auto) 8.6 (0.0-11.0) % Eos % (Auto) 1.4 (0.0-7.0) % Baso % (Auto) 0.4 (0.0-3.0) % Neut # (Auto) 5.88 (1.7-7.0) K/uL Lymph # (Auto) 2.47 (0.90-2.90) K/uL [place] # (Auto) 0.80 (0.00-0.90) K/UL Eos # (Auto) 0.13 (0.00-0.50) K/uL Baso # (Auto) 0.04 (0.00-0.30) K/uL Abs Immat Gran (auto) 0.00 (0.00-0.30) K/uL Imm/Tot Granulo (auto) 0.0 % Sodium 136 (135-149) mmol/L Potassium 3.5 L (3.6-5.1) mmol/L Chloride 103 (96-114) mmol/L Carbon Dioxide 24 (20-32) mmol/L Anion Gap 9 (7-15) mEq/L BUN 10 (5-24) mg/dL Creatinine 0.7 (0.5-1.5) mg/dL Estimated Creat Clear 87.55 Estimated GFR 119 ml/min Glucose 111 (60-115) mg/dL Calcium 9.2 (8.4-10.6) mg/dL Total Bilirubin 1.0 (0.1-1.5) mg/dL AST 58 H (12-35) U/L ALT 56 H (4-35) U/L Alkaline Phosphatase 66 (40-150) U/L C-Reactive Protein < 0.5 L (0.5-1.0) mg/dL Total Protein 7.2 (6.0-8.3) g/dL Albumin 4.5 (3.3-5.0) g/dL Urine Color Yellow (Yellow) Urine Appearance Slightly Cloudy A (Clear) Urine pH 6.0 (5.0-8.5) Ur Specific [place] >= 1.030 (1.000-1.030) Urine Protein Negative (Negative) Urine Glucose (UA) Negative (Negative) Urine Ketones Negative (Negative) Urine Blood Negative (Negative) Urine Nitrite Negative (Negative) Urine Bilirubin Negative (Negative) Urine Urobilinogen 0.2 (0.2-1.0) Ur Leukocyte Esterase Negative (Negative) Urine RBC 0-2 (0-2) Urine WBC 0-2 (0-5) Ur Squamous Epith Cells Few (None-Few) Urine Bacteria Few A (None) Urine HCG, Qual Negative (Negative) SARS-CoV-2 (PCR) Negative SARS-CoV-2 (Negative) Influenza Type A (PCR) Negative PCR FLU A (Negative) Influenza Type B (PCR) Negative PCR FLU B (Negative) RSV (PCR) Negative PCR RSV (Negative) Lab Acknowledgement Test Added Imaging Data Chest x-ray: Attestation: I have reviewed the pertinent imaging results. My impression: By my read no evidence of infiltrates. Radiologist's impression: Cardiovascular and mediastinum: Heart size and vasculature are normal in caliber and appearance. Lungs and pleural space: Lungs are clear. No sign of infiltrate or mass. No sign of pleural effusion. No pneumothorax. Bones and soft tissues: No acute findings. Discharge Plan Discharge Clinical Impression: Abdominal pain, Nausea vomiting and diarrhea Patient Disposition: Home, Self-Care Condition: Improved Instructions: Abdominal Pain (ED) Additional Instructions: Suggest pushing fluids and staying hydrated as much as possible. Your white count and CRP and inflammatory marker were normal today. He do have a slight elevation in your liver function tests but this looks like it has happened before. Your urinalysis does not show any evidence of UTI. You have tested negative for COVID influenza and RSV. Suggest the use of Aleve as needed for discomfort. I do think you would benefit from a follow-up with our surgeons. I wonder if you may need a colonoscopy. I will add the gluten test on to today's Labs and inform you if this comes back positive. Good handwashing and return as needed for worsening symptoms. Follow Up/Referrals: Kody Balderas MD [Staff Physician] - Stand Alone Forms[facility]
--- NOTE | 2024-04-19 13:49 | CRLHL7_ITS ---
For Patients: As a result of the Century Cures Act, medical imaging exams and procedure reports are released immediately into your electronic medical record. You may view this report before your referring provider. If you have questions, please contact your health care provider. Indication: Cough Technique: Chest 1 view Comparison: Chest x-ray 01/09/2013 Findings/Impression: Cardiovascular and mediastinum: Heart size and vasculature are normal in caliber and appearance. Lungs and pleural space: Lungs are clear. No sign of infiltrate or mass. No sign of pleural effusion. No pneumothorax. Bones and soft tissues: No acute findings. Dictated by Kingston Valladares MD @ 04/19/2024 2:24:18 PM (Electronically Signed)
--- OUTSIDE RECORDS SUMMARY | 2024-04-19 13:52 | XMS_ITS | Clinical Summary ---
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
[2024-04-19] MEDS: ONDANSETRON 2 MG/ML inj 4 MG IVP (14:10)
[2024-04-19 14:12] LABS: Appearance Urine Slightly Cloudy (Clear); Bilirubin Urine Negative (Negative); Blood Urine Negative (Negative); Color Urine Yellow (Yellow); Glucose Urine Negative (Negative); Ketones Urine Negative (Negative); Leukocyte Esterase Urine Negative (Negative); Nitrite Urine Negative (Negative); Protein Urine Negative (Negative); Specific Gravity Urine >= 1.030 (1.000-1.030); Urobilinogen Urine 0.2 (0.2-1.0)
[2024-04-19 14:13] LABS: Ur HCG Qualitative* Negative (Negative)
[2024-04-19] MEDS: KETOROLAC 15 MG/ML inj IVP (14:13)
[2024-04-19 14:18] LABS: Chloride* 103 mmol/L (96-114)
[2024-04-19 14:19] LABS: Albumin* 4.5 g/dL (3.3-5.0); Basophils Absolute Auto 0.04 K/uL (0.00-0.30); Basophils Percent Auto 0.4 % (0.0-3.0); Eosinophils Absolute Auto 0.13 K/uL (0.00-0.50); Eosinophils Percent Auto 1.4 % (0.0-7.0); Hematocrit 42.2 % (33.0-51.0); Hemoglobin* 14.9 gm/dL (12.0-16.0); Lymphocytes Absolute Auto 2.47 K/uL (0.90-2.90); Lymphocytes Percent Auto 26.5 % (20-44); Mean Corpuscular HGB Conc 35 gm/dL (32-36); Mean Corpuscular Hemoglobin 36 pg (26-34); Mean Corpuscular Volume 101 fL (80-100); Monocytes Percent Auto 8.6 % (0.0-11.0); Neutrophils Absolute Auto 5.88 K/uL (1.7-7.0); Neutrophils Percent Auto 63.1 % (42.0-72.0); Platelet Count* 251 K/uL (140-440); RDW Coefficient of Variation % 11.5 % (11.5-15.5); Red Blood Count 4.17 m/uL (4.00-5.20); Sodium* 136 mmol/L (135-149); White Blood Count* 9.32 K/uL (4.50-11.00)
[2024-04-19 14:20] LABS: Potassium* 3.5 mmol/L (3.6-5.1)
[2024-04-19 14:22] LABS: Alanine Aminotransferase* 56 U/L (4-35); Alkaline Phosphatase* 66 U/L (40-150); Anion Gap 9 mEq/L (7-15); Aspartate Amino Transferase* 58 U/L (12-35); Carbon Dioxide* 24 mmol/L (20-32); Creatinine* 0.7 mg/dL (0.5-1.5); Est. Creatinine Clearance* 87.55; Estimated Glomerular Filt Rate 119 ml/min; Total Protein* 7.2 g/dL (6.0-8.3)
[2024-04-19 14:23] LABS: Blood Urea Nitrogen* 10 mg/dL (5-24); Calcium* 9.2 mg/dL (8.4-10.6); Glucose* 111 mg/dL (60-115)
[2024-04-19 14:27] LABS: C Reactive Protein* < 0.5 mg/dL (0.5-1.0); Slide Review Reflex No
[2024-04-19 14:38] LABS: Bacteria Urine Few; RBC Urine 0-2 (0-2); Squamous Epithelial Cell Urine Few (None-Few); WBC Urine 0-2 (0-5)
[2024-04-19 14:56] VITALS: BP 129/97; PULSE 83; RESP 18; TEMP 36.6; O2SAT 99
[2024-04-19 15:30] LABS: PCR FLU A Negative PCR FLU A (Negative); PCR FLU B Negative PCR FLU B (Negative); PCR RSV Negative PCR RSV (Negative); SARS PCR* Negative SARS-CoV-2 (Negative)
== END 2024-04-19 15:50 | disposition home or self-care (01) ==
PROVIDERS: Emergency Provider Family Medicine; PCP Nurse Practitioner Family
DX: R10.9 Unspecified abdominal pain (principal); R11.2 Nausea with vomiting, unspecified; R19.7 Diarrhea, unspecified
CPT/HCPCS: 36415; 71045; 80053; 81001; 81025; 85025; 86140; 86364; 87086; 87631; 96374; 96375; 99284; J1885; J2405

== ENCOUNTER 2024-07-02 10:37 | Emergency (ER) | payer OTHER, SELFPAY ==
[2024-07-02] VITALS (11 sets, daily range): BP systolic 135–143; BP diastolic 96–105; PULSE 77–110; RESP 24; TEMP 36.5; O2SAT 99–100; BMI 19.0
--- NOTE | 2024-07-02 11:06 | CRLHL7_ITS ---
For Patients: As a result of the Century Cures Act, medical imaging exams and procedure reports are released immediately into your electronic medical record. You may view this report before your referring provider. If you have questions, please contact your health care provider. INDICATION: Upper epigastric pain TECHNIQUE: Axial images were obtained from the diaphragm to the pubic symphysis. Reformats were obtained in the coronal and sagittal plane. IV Contrast: 51 cc Isovue 370 Oral Contrast: None COMPARISON: Abdomen and pelvis CT 03/13/2024 FINDINGS: Lower chest: Unremarkable. Liver: Normal in contour with mildly decreased density of the liver diffusely. Gallbladder and bile ducts: Status post cholecystectomy. Spleen: Unremarkable. Normal in size without mass. Pancreas: Normal in contour with some fat stranding in the region of the zoraida hepatis and along the pancreaticoduodenal groove (2, 55). Adrenal glands: Unremarkable. No nodules. Kidneys: Unremarkable. No masses, stones, or hydronephrosis. Vasculature: Unremarkable. GI tract: No dilated loops of large or small intestine. Mild fat stranding in the right upper quadrant, mostly centered around the zoraida hepatis and pancreaticoduodenal groove. Pelvis: Bladder is decompressed. Uterus is anteverted. Ovaries upper normal size although without discrete lesion and similar to the prior exam. Bones: Unremarkable for age. IMPRESSION: 1. Focal fat stranding and edema at the level of the zoraida hepatis and pancreaticoduodenal groove. Differential diagnosis includes pancreatitis, duodenitis or peptic ulcer disease. 2. Mild hepatic steatosis. Please note that all CT scans at this facility use dose modulation, iterative reconstruction, and/or weight-based dosing when appropriate to reduce radiation dose to as low as reasonably achievable. Dictated by Kingston Valladares MD @ 07/02/2024 12:43:29 PM (Electronically Signed)
--- NOTE | 2024-07-02 11:08 | ED_ITS ---
HPI - General Adult General Chief complaint: Back Injury/Pain Stated complaint: back pain stomach pain Time Seen by Provider: 07/02/24 10:54 History of Present Illness HPI narrative: This 29-year-old female comes in with upper epigastric abdominal pain and back pain. She states that these symptoms started a couple days ago and have worsened since then. She reports the pain being constant. She has had some nausea, vomiting, and diarrhea. She does not report any fever. She had her gallbladder removed about 6 months ago. She does have a history of endometriosis. She states that her symptoms seem different than symptoms related to those diagnoses. She states that she has been able to take food and did not have any worsening or improvement of her symptoms. Related Data Home Medications ?Medication ?Instructions ?Recorded ?Confirmed Vitamin B-12 07/02/24 Zantac 07/02/24 folic acid 07/02/24 Previous Rx's ?Medication ?Instructions ?Recorded hydrocodone 5 mg-acetaminophen 325 1 tab PO Q4-6H PRN pain #15 tabs 07/02/24 mg tablet ketorolac 10 mg tablet 10 mg PO Q8H 5 days #15 tabs 07/02/24 ondansetron HCl 4 mg tablet 4 mg PO Q6H #10 tabs 07/02/24 Allergies Allergy/AdvReac Type Severity Reaction Status Date / Time No Known Drug Allergies Allergy Verified 07/02/24 12:27 Review of Systems Status of ROS: Reports: 10 or more systems reviewed and unremarkable except as noted in History and below Narrative: Constitutional: No fevers, no weight gain or loss. Eyes: No discharge. No vision changes. HENT: No congestion, no sore throat, no ear pain. Cardiovascular: No chest pain, no palpitations. Respiratory: No shortness of breath, no wheezes, no cough. Gastrointestinal: Upper epigastric abdominal pain with some vomiting and diarrhea episodes. Genitourinary: No dysuria, no hematuria. Musculoskeletal: Normal range of motion. Skin: No rashes, no pruritis. Neurological: No dizziness, weakness, sensory change, speech change. Endo/Heme/Allergies: No bruising or bleeding. No polydipsia. Pysch: no suicidality, no anxiety, no insomnia. All other systems reviewed and are negative. [facility] Medical History Ovarian cyst (03/11/13) ?N83.209 - Unspecified ovarian cyst, unspecified side (ICD-10) Fracture of rib (03/11/13) ?S22.39XA - Fracture of one rib, unspecified side, initial encounter for closed fracture (ICD-10) Surgical History Status post tonsillectomy ?Z90.89 - Acquired absence of other organs (ICD-10) Status post ovarian cystectomy ?Z98.890 - Other specified postprocedural states (ICD-10) ?Z87.42 - Personal history of other diseases of the female genital tract (ICD-10) Status post laparoscopy ?Z98.890 - Other specified postprocedural states (ICD-10) History of third molar tooth extraction ?K08.409 - Partial loss of teeth, unspecified cause, unspecified class (ICD- 10) Social History Narrative: Patient works in [employer] at the [employer]. . No children. Alcohol, no. Smoke marijuana. No formal exercise. Current everyday smoker, 1/2 pack per day. What is your current living situation?: I presently have a place to live Problems where you live: no known problems In the past 12 months, utilities in danger of being shut off: no In past 12 months, lack of transportation kept you from medical appts, meetings, work, or getting things needed for daily living: no In the past 12 mos, have been you worried that your food would run out before you had money to buy more?: never true In the past 12 mos, the food you bought just didn't last and you didn't have money to buy more?: never true Smoking Status: Current every day smoker What tobacco products do you use: cigarettes Smoking packs per day: 0.5 Smoking cigarettes per day: 10.0 Years smoked: 15 Smoking pack-years: 7.50 Do you use any of these nicotine containing products: None Second hand tobacco smoke exposure: No How often do you have a drink containing alcohol: 4 or more times a week How many standard drinks containing alcohol do you have on a typical day: 1 or 2 AUDIT-C Alcohol total score: 4 Non-prescribed substance use: marijuana (any form) Non-prescribed substance use details: daily Caffeine: Yes How often does anyone, including family, friends and others, physically hurt you : never How often does anyone, including family, friends and others, insult or talk down to you: never How often does anyone, including family, friends and others, threaten you with harm: never How often does anyone, including family, friends and others, scream or curse at you: never Are you using contraception or practicing any form of control: No Exam Narrative: Exam Narrative: Constitutional: Well-developed, well-nourished, no acute distress. HEENT: Normocephalic, atraumatic. Neck: Normal range of motion. Nontender. Supple. Heart: Regular. No murmurs. Normal rate. Intact distal pulses. Lungs: Clear to auscultation. No chest discomfort. No wheezes, rhonchi, or rales. Abdomen: Decreased bowel sounds. Upper epigastric tenderness. No rebound tenderness. Genitalia: Deferred. Back: No midline tenderness. Normal range of motion. Extremities: Normal range of motion. No injury. Skin: Intact. No rash. Warm. No erythema or pallor. Neurologic: No altered sensation. No weakness. Alert and oriented. Psychiatric: No suicidality. No anxiety or depression. No insomnia. Nursing notes and vitals signs are reviewed. Const: Vital Signs, click to edit/add: Vital Signs - 24 hr 07/02/24 10:45 Temperature 97.7 F Pulse Rate [Pulse Oximeter] 110 H Respiratory Rate 24 Blood Pressure [Ri ght Upper Arm] 143/105 H Pulse Oximetry 100 Oxygen Delivery Me thod Room Air Course Vital Signs Vital signs: Initial Vital Signs Temperature 97.7 F 07/02/24 10:45 Temperature Source Temporal Artery Scan 07/02/24 10:45 Pulse Rate 110 H 07/02/24 10:45 Respiratory Rate 24 07/02/24 10:45 Blood Pressure 143/105 H 07/02/24 10:45 Blood Pressure Mean 117 H 07/02/24 10:45 Pulse Oximetry 100 07/02/24 10:45 Oxygen Delivery Method Room Air 07/02/24 10:45 Vital Signs Temperature 97.7 F 07/02/24 10:45 Pulse Rate 110 H 07/02/24 10:45 Respiratory Rate 24 07/02/24 10:45 Blood Pressure 143/105 H 07/02/24 10:45 Pulse Oximetry 100 07/02/24 10:45 Oxygen Delivery Method Room Air 07/02/24 10:45 Temperature 97.7 F 07/02/24 10:45 Pulse Rate 110 H 07/02/24 10:45 Respiratory Rate 24 07/02/24 10:45 Blood Pressure 143/105 H 07/02/24 10:45 Pulse Oximetry 100 07/02/24 10:45 Oxygen Delivery Method Room Air 07/02/24 10:45 Medications Administered Medications: Discontinued Medications Generic Name Dose Route Start Last Admin Trade Name Audi PRN Reason Stop Dose Admin Sodium Chloride 500 mls @ 500 mls/hr 07/02/24 11:05 07/02/24 12:07 0.9 % Sodium Chloride 500 Ml IV 07/02/24 12:04 Infused .Q1H ONE Infusion Ketorolac Tromethamine 15 mg 07/02/24 11:05 07/02/24 11:39 Ketorolac 30 Mg/Ml Inj IVP 07/02/24 11:06 15 mg ONCE ONE Administration Medical Decision Making MDM Narrative Medical decision making narrative: This patient comes in with upper epigastric pain radiating through to her back. An IV is established and labs are acquired. Her lipase returns elevated at around 2:[address] imaging does show changes suggestive of pancreatitis. The patient has had her gallbladder removed. She reports her last drink of alcohol 4 days ago. It seems more likely that this pancreatitis is related to alcohol use. I did advise her to avoid alcohol going forward. I recommended admission but stated that we do not have any beds available currently so she would be boarding here in the ER. She prefers to return home. She does have reassuring vital signs and states that she is feeling better. I did advise her regarding signs and symptoms that would indicate a need for return and re- evaluation. She did receive prescriptions for Toradol, Uehling, and Zofran. Lab Data Labs: Lab Results 07/02/24 Range/Units 11:30 WBC 10.95 (4.50-11.00) K/uL RBC 4.41 (4.00-5.20) m/uL Hgb 15.6 (12.0-16.0) gm/dL Hct 44.4 (33.0-51.0) % MCV 101 H (80-100) fL MCH 35 H (26-34) pg MCHC 35 (32-36) gm/dL RDW Coeff of Inez 12.1 (11.5-15.5) % Plt Count 269 (140-440) K/uL Neut % (Auto) 65.5 (42.0-72.0) % Lymph % (Auto) 25.8 (20-44) % [place] % (Auto) 6.6 (0.0-11.0) % Eos % (Auto) 1.6 (0.0-7.0) % Baso % (Auto) 0.4 (0.0-3.0) % Neut # (Auto) 7.18 H (1.7-7.0) K/uL Lymph # (Auto) 2.83 (0.90-2.90) K/uL [place] # (Auto) 0.70 (0.00-0.90) K/UL Eos # (Auto) 0.17 (0.00-0.50) K/uL Baso # (Auto) 0.04 (0.00-0.30) K/uL Abs Immat Gran (auto) 0.01 (0.00-0.30) K/uL Imm/Tot Granulo (auto) 0.1 % Sodium 137 (135-149) mmol/L Potassium 3.4 L (3.6-5.1) mmol/L Chloride 99 (96-114) mmol/L Carbon Dioxide 30 (20-32) mmol/L Anion Gap 8 (7-15) mEq/L BUN 7 (5-24) mg/dL Creatinine 0.5 (0.5-1.5) mg/dL Estimated Creat Clear 121.41 Estimated GFR 129 ml/min Glucose 110 (60-115) mg/dL Calcium 9.2 (8.4-10.6) mg/dL Total Bilirubin 1.5 (0.1-1.5) mg/dL Direct Bilirubin 0.4 (0.0-0.5) mg/dL AST 70 H (12-35) U/L ALT 79 H (4-35) U/L Alkaline Phosphatase 86 (40-150) U/L Total Protein 7.3 (6.0-8.3) g/dL Albumin 4.5 (3.3-5.0) g/dL Lipase 1472 H (23-300) U/L HCG, Qual Negative (Negative) Imaging Data CT scan - abdomen: Radiologist's impression: 1. Focal fat stranding and edema at the level of the zoraida hepatis and pancreaticoduodenal groove. Differential diagnosis includes pancreatitis, duodenitis or peptic ulcer disease. 2. Mild hepatic steatosis. Discharge Plan Discharge Clinical Impression: Pancreatitis Patient Disposition: Home, Self-Care Condition: Stable Additional Instructions: Take frequent sips of fluids. Use medications as needed and directed. Increase diet otherwise as tolerated. Follow up with MD return if not improving or worsening. Prescriptions: New hydrocodone-acetaminophen 5-325 mg tablet 1 tab PO Q4-6H PRN (Reason: pain) Qty: 15 0RF ondansetron HCl 4 mg tablet 4 mg PO Q6H Qty: 10 0RF ketorolac 10 mg tablet 10 mg PO Q8H 5 Days Qty: 15 0RF No Action Zantac folic acid Vitamin B-12 Follow Up/Referrals: Patricia Mao, SENIOR RISK ANALYST, LABOR COMMISSIONER [Primary Care Provider] - Stand Alone Forms: [facility] Info Instructions
[2024-07-02 11:34] LABS: Basophils Absolute Auto 0.04 K/uL (0.00-0.30); Basophils Percent Auto 0.4 % (0.0-3.0); Eosinophils Absolute Auto 0.17 K/uL (0.00-0.50); Eosinophils Percent Auto 1.6 % (0.0-7.0); Hematocrit 44.4 % (33.0-51.0); Hemoglobin* 15.6 gm/dL (12.0-16.0); Immature Granulocytes Abs Auto 0.01 K/uL (0.00-0.30); Immature Granulocytes Pct Auto 0.1 %; Lymphocytes Absolute Auto 2.83 K/uL (0.90-2.90); Lymphocytes Percent Auto 25.8 % (20-44); Mean Corpuscular HGB Conc 35 gm/dL (32-36); Mean Corpuscular Hemoglobin 35 pg (26-34); Mean Corpuscular Volume 101 fL (80-100); Monocytes Percent Auto 6.6 % (0.0-11.0); Neutrophils Absolute Auto 7.18 K/uL (1.7-7.0); Neutrophils Percent Auto 65.5 % (42.0-72.0); Platelet Count* 269 K/uL (140-440); RDW Coefficient of Variation % 12.1 % (11.5-15.5); Red Blood Count 4.41 m/uL (4.00-5.20); White Blood Count* 10.95 K/uL (4.50-11.00)
[2024-07-02 11:38] LABS: Slide Review Reflex No
[2024-07-02] MEDS: 0.9 % SODIUM CHLORIDE 500 ML 500 ML IV (11:39)
[2024-07-02] MEDS: KETOROLAC 30 MG/ML inj 15 MG IVP (11:39)
[2024-07-02 11:47] LABS: Albumin* 4.5 g/dL (3.3-5.0); Chloride* 99 mmol/L (96-114); Potassium* 3.4 mmol/L (3.6-5.1); Sodium* 137 mmol/L (135-149)
[2024-07-02 11:49] LABS: Creatinine* 0.5 mg/dL (0.5-1.5); Est. Creatinine Clearance* 121.41; Estimated Glomerular Filt Rate 129 ml/min
[2024-07-02 11:50] LABS: Alkaline Phosphatase* 86 U/L (40-150); Anion Gap 8 mEq/L (7-15); Aspartate Amino Transferase* 70 U/L (12-35); Bilirubin Direct* 0.4 mg/dL (0.0-0.5); Bilirubin Total* 1.5 mg/dL (0.1-1.5); Blood Urea Nitrogen* 7 mg/dL (5-24); Calcium* 9.2 mg/dL (8.4-10.6); Carbon Dioxide* 30 mmol/L (20-32); Glucose* 110 mg/dL (60-115); Lipase* 1472 U/L (23-300); Total Protein* 7.3 g/dL (6.0-8.3)
[2024-07-02 11:51] LABS: Alanine Aminotransferase* 79 U/L (4-35)
[2024-07-02 11:58] LABS: HCG Qualitative Serum* Negative (Negative)
--- NOTE | 2024-07-02 16:01 | ED.NURSE ---
vitals were monitored and stable while in ER, deleted before entered into chart.
== END 2024-07-02 13:40 | disposition home or self-care (01) ==
PROVIDERS: Emergency Provider Emergency Medicine Emergency Medical Services; PCP Nurse Practitioner Family
DX: K85.90 Acute pancreatitis without necrosis or infection, unspecified (principal)
CPT/HCPCS: 36415; 74177; 80048; 80076; 83690; 84703; 85025; 99284; 99285; J1885; J7030; Q9967

== ENCOUNTER 2024-07-09 16:34 | Outpatient (CLI) | payer OTHER, SELFPAY | END 2024-07-09 16:35 | disposition home or self-care (01) | PROVIDERS: PCP Nurse Practitioner Family; Visit Provider Nurse Practitioner Family | DX: K85.90 Acute pancreatitis without necrosis or infection, unspecified (principal); R10.12 Left upper quadrant pain | CPT/HCPCS: 80053; 82150; 83690 ==

== ENCOUNTER 2024-07-19 14:46 | Emergency (ER) | payer OTHER, SELFPAY ==
[2024-07-19 14:54] VITALS: BP 153/97; PULSE 96; RESP 18; TEMP 36.5; O2SAT 99; BMI 18.6
--- NOTE | 2024-07-19 15:13 | ED.ABDPAIN ---
HPI - Abdominal Pain General Chief Complaint: Abdominal Pain <Enoch Yang MD - Last Filed: 07/19/24 15:16> Stated Complaint: Pancreatitis <Enoch Yang MD - Last Filed: 07/19/24 15:16> Time Seen by Provider: 07/19/24 15:09 <Enoch Yang MD - Last Filed: 07/19/24 15:16> History of Present Illness HPI narrative: Patient is a 29-year-old woman with a history recurrent pancreatitis who presents with severe abdominal pain just superior to the umbilicus with radiation to the back. This is consistent with previous bouts of pancreatitis. Patient's last drink was 2 days ago. She is status post cholecystectomy his past for symptomatic gallstones. Patient takes pancreatic enzymes as well as vitamin B12 and famotidine. She has had no diarrhea no chest pain no shortness of breath with cough. She has had some nausea but no obvious vomiting. No change in color of her stools. Patient also suffers from polycystic ovarian syndrome and endometriosis. <Enoch Yang MD - Last Filed: 07/19/24 15:16> Related Data Home Medications: Home Medications ?Medication ?Instructions ?Recorded ?Confirmed cyanocobalamin (vitamin B-12) 1,000 mcg PO QDAY 07/09/24 07/19/24 1,000 mcg capsule famotidine 20 mg tablet 20 mg PO QDAY 07/09/24 07/19/24 (Zantac-360 (famotidine)) Previous Rx's ?Medication ?Instructions ?Recorded ondansetron 4 mg disintegrating 4 mg PO Q6H #20 tabs 07/19/24 tablet oxycodone 5 mg tablet 5 mg PO Q6H PRN pain #12 tabs 07/19/24 <Enoch Yang MD - Last Filed: 07/19/24 15:16> Allergies/Adverse Reactions: Allergies Allergy/AdvReac Type Severity Reaction Status Date / Time No Known Drug Allergies Allergy Verified 07/19/24 16:00 <Enoch Yang MD - Last Filed: 07/19/24 15:16> Review of Systems Status of ROS Reports: 10 or more systems reviewed and unremarkable except as noted in History and below <Enoch Yang MD - Last Filed: 07/19/24 15:16> [facility] Medical History: Medical History Ovarian cyst (03/11/13) ?N83.209 - Unspecified ovarian cyst, unspecified side (ICD-10) Fracture of rib (03/11/13) ?S22.39XA - Fracture of one rib, unspecified side, initial encounter for closed fracture (ICD-10) <Enoch Yang MD - Last Filed: 07/19/24 15:16> Surgical History: Surgical History Status post tonsillectomy ?Z90.89 - Acquired absence of other organs (ICD-10) Status post ovarian cystectomy ?Z98.890 - Other specified postprocedural states (ICD-10) ?Z87.42 - Personal history of other diseases of the female genital tract (ICD-10) Status post laparoscopy ?Z98.890 - Other specified postprocedural states (ICD-10) History of third molar tooth extraction ?K08.409 - Partial loss of teeth, unspecified cause, unspecified class (ICD-10) <Enoch Yang MD - Last Filed: 07/19/24 15:16> Social History: Social History Narrative: Patient works in [employer] at the [employer]. . No children. Alcohol, no. Smoke marijuana. No formal exercise. Current everyday smoker, 1/2 pack per day. What is your current living situation?: I presently have a place to live Problems where you live: no known problems In the past 12 months, utilities in danger of being shut off: no In past 12 months, lack of transportation kept you from medical appts, meetings, work, or getting things needed for daily living: no In the past 12 mos, have been you worried that your food would run out before you had money to buy more?: never true In the past 12 mos, the food you bought just didn't last and you didn't have money to buy more?: never true Smoking Status: Current every day smoker What tobacco products do you use: cigarettes Smoking packs per day: 0.5 Smoking cigarettes per day: 10.0 Years smoked: 15 Smoking pack-years: 7.50 Do you use any of these nicotine containing products: None Second hand tobacco smoke exposure: No How often do you have a drink containing alcohol: 4 or more times a week How many standard drinks containing alcohol do you have on a typical day: 1 or 2 AUDIT-C Alcohol total score: 4 Non-prescribed substance use: marijuana (any form) Non-prescribed substance use details: daily Caffeine: Yes How often does anyone, including family, friends and others, physically hurt you: never How often does anyone, including family, friends and others, insult or talk down to you: never How often does anyone, including family, friends and others, threaten you with harm: never How often does anyone, including family, friends and others, scream or curse at you: never Are you using contraception or practicing any form of control: No <Enoch Yang MD - Last Filed: 07/19/24 15:16> Exam Narrative: Exam Narrative: EXAM GENERAL: Patient appears acutely distressed. EYES: No scleral icterus. LYMPH: No supraclavicular or cervical lymphadenopathy. SKIN: Visible skin seen during exam normal or with benign process only. EXT: No dependent lower extremity pedal edema. HEART: Regular rate and rhythm with no murmurs, rubs, or gallops. LUNGS: Clear to auscultation bilaterally with no crackles or wheezes. ABD: With voluntary and involuntary guarding with hypoactive bowel sounds no masses palpable. PSYCH: Good eye contact, speech is not pressured. <Enoch Yang MD - Last Filed: 07/19/24 15:16> Const: Vital Signs, click to edit/add: Vital Signs - 24 hr 07/19/24 14:54 07/19/24 15:44 07/19/24 16:03 Temperature 97.7 F Pulse Rate 96 Pulse Rate [Femora l] 96 Respiratory Rate 18 14 Blood Pressure 121/96 H Blood Pressure [Ri ght Upper Arm] 153/97 H Pulse Oximetry 99 98 98 Oxygen Delivery Me thod Room Air <Enoch Yang MD - Last Filed: 07/19/24 15:16> Vital Signs, click to edit/add: Vital Signs - 24 hr 07/19/24 14:54 07/19/24 15:44 07/19/24 16:03 Temperature 97.7 F Pulse Rate 96 Pulse Rate [Femora l] 96 Respiratory Rate 18 14 Blood Pressure 121/96 H Blood Pressure [Ri ght Upper Arm] 153/97 H Pulse Oximetry 99 98 98 Oxygen Delivery Me thod Room Air <Chase De La Torre DO - Last Filed: 07/19/24 17:12> Course Course ED Course: Will repeat her CBC comprehensive metabolic panel lipase serum UA CT abdomen pelvis will get hydration and treated with IV Dilaudid. Zofran given as well. <Enoch Yang MD - Last Filed: 07/19/24 15:16> Vital Signs Vital signs: Initial Vital Signs Temperature 97.7 F 07/19/24 14:54 Temperature Source Oral 07/19/24 14:54 Pulse Rate 96 07/19/24 14:54 Respiratory Rate 18 07/19/24 14:54 Blood Pressure 153/97 H 07/19/24 14:54 Blood Pressure Mean 115 H 07/19/24 14:54 Pulse Oximetry 99 07/19/24 14:54 Oxygen Delivery Method Room Air 07/19/24 14:54 Vital Signs Temperature 97.7 F 07/19/24 14:54 Pulse Rate 96 07/19/24 14:54 Respiratory Rate 18 07/19/24 14:54 Blood Pressure 153/97 H 07/19/24 14:54 Pulse Oximetry 99 07/19/24 14:54 Oxygen Delivery Method Room Air 07/19/24 14:54 Temperature 97.7 F 07/19/24 14:54 Pulse Rate 96 07/19/24 15:44 Respiratory Rate 14 07/19/24 15:44 Blood Pressure 121/96 H 07/19/24 15:44 Pulse Oximetry 98 07/19/24 16:03 Oxygen Delivery Method Room Air 07/19/24 14:54 <Enoch Yang MD - Last Filed: 07/19/24 15:16> Initial Vital Signs Temperature 97.7 F 07/19/24 14:54 Temperature Source Oral 07/19/24 14:54 Pulse Rate 96 07/19/24 14:54 Respiratory Rate 18 07/19/24 14:54 Blood Pressure 153/97 H 07/19/24 14:54 Blood Pressure Mean 115 H 07/19/24 14:54 Pulse Oximetry 99 07/19/24 14:54 Oxygen Delivery Method Room Air 07/19/24 14:54 Vital Signs Temperature 97.7 F 07/19/24 14:54 Pulse Rate 96 07/19/24 14:54 Respiratory Rate 18 07/19/24 14:54 Blood Pressure 153/97 H 07/19/24 14:54 Pulse Oximetry 99 07/19/24 14:54 Oxygen Delivery Method Room Air 07/19/24 14:54 Temperature 97.7 F 07/19/24 14:54 Pulse Rate 96 07/19/24 15:44 Respiratory Rate 14 07/19/24 15:44 Blood Pressure 121/96 H 07/19/24 15:44 Pulse Oximetry 98 07/19/24 16:03 Oxygen Delivery Method Room Air 07/19/24 14:54 <Chase De La Torre DO - Last Filed: 07/19/24 17:12> Medications Administered Medications: Discontinued Medications Generic Name Dose Route Start Last Admin Trade Name Freq PRN Reason Stop Dose Admin Hydromorphone HCl 0.5 mg 07/19/24 15:16 07/19/24 15:35 Hydromorphone 0.5 Mg/0.5 Ml Inj IVP 07/19/24 15:17 0.5 mg ONCE ONE Administration Ondansetron HCl 4 mg 07/19/24 15:16 07/19/24 15:36 Ondansetron 2 Mg/Ml Inj IVP 07/19/24 15:17 4 mg ONCE ONE Administration <Enoch Yang MD - Last Filed: 07/19/24 15:16> Discontinued Medications Generic Name Dose Route Start Last Admin Trade Name Freq PRN Reason Stop Dose Admin Hydromorphone HCl 0.5 mg 07/19/24 15:16 07/19/24 15:35 Hydromorphone 0.5 Mg/0.5 Ml Inj IVP 07/19/24 15:17 0.5 mg ONCE ONE Administration Ondansetron HCl 4 mg 07/19/24 15:16 07/19/24 15:36 Ondansetron 2 Mg/Ml Inj IVP 07/19/24 15:17 4 mg ONCE ONE Administration <Chase De La Torre DO - Last Filed: 07/19/24 17:12> MDM - Abdominal Pain MDM Narrative Medical decision making narrative: patient is a 29-year-old female presenting for abdominal pain. She was signed out to me pending lab work and imaging results. Her lab work is not showing any concerning findings. Lipase within normal limits. No signs of concerning infection based off lab work. CT scan returned showing improvement her pancreatitis and new jejunitis. this is not require antibiotics at this time but with her unknown causes for pancreatitis and now having other inflammation there is some underlining concern for autoimmune causes of her symptoms. Due to that I do feel comfortable discharging her oxycodone. She does have follow-up with GI or ready and has outpatient imaging including ultrasound, colonoscopy, endoscopy scheduled with [facility] already. she is agreeable to this plan. Will also provide Zofran. She states her pain is a 6 out had but tolerable and the nausea is much improved. <Chase De La Torre, DO - Last Filed: 07/19/24 17:12> Lab Data Labs: Lab Results 07/19/24 07/19/24 Range/Units 15:30 16:10 WBC 8.76 (4.50-11.00) K/uL RBC 4.32 (4.00-5.20) m/uL Hgb 15.3 (12.0-16.0) gm/dL Hct 43.9 (33.0-51.0) % MCV 102 H (80-100) fL MCH 35 H (26-34) pg MCHC 35 (32-36) gm/dL RDW Coeff of Inez 12.1 (11.5-15.5) % Plt Count 317 (140-440) K/uL Neut % (Auto) 50.9 (42.0-72.0) % Lymph % (Auto) 41.2 (20-44) % [place] % (Auto) 5.7 (0.0-11.0) % Eos % (Auto) 1.6 (0.0-7.0) % Baso % (Auto) 0.5 (0.0-3.0) % Neut # (Auto) 4.46 (1.7-7.0) K/uL Lymph # (Auto) 3.61 H (0.90-2.90) K/uL [place] # (Auto) 0.50 (0.00-0.90) K/UL Eos # (Auto) 0.14 (0.00-0.50) K/uL Baso # (Auto) 0.04 (0.00-0.30) K/uL Abs Immat Gran (auto) 0.01 (0.00-0.30) K/uL Imm/Tot Granulo (auto) 0.1 % Sodium 136 (135-149) mmol/L Potassium 3.5 L (3.6-5.1) mmol/L Chloride 102 (96-114) mmol/L Carbon Dioxide 22 (20-32) mmol/L Anion Gap 12 (7-15) mEq/L BUN 8 (5-24) mg/dL Creatinine 0.6 (0.5-1.5) mg/dL Estimated Creat Clear 102.14 Estimated GFR 123 ml/min Glucose 84 (60-115) mg/dL Lactate 1.2 (0.5-1.9) mmol/L Calcium 9.3 (8.4-10.6) mg/dL Total Bilirubin 1.4 (0.1-1.5) mg/dL AST 55 H (12-35) U/L ALT 47 H (4-35) U/L Alkaline Phosphatase 73 (40-150) U/L Total Protein 8.0 (6.0-8.3) g/dL Albumin 4.9 (3.3-5.0) g/dL Lipase 160 (23-300) U/L Urine Color Yellow (Yellow) Urine Appearance Clear (Clear) Urine pH 7.0 (5.0-8.5) Ur Specific [place] 1.010 (1.000-1.030) Urine Protein Negative (Negative) Urine Glucose (UA) Negative (Negative) Urine Ketones Trace A (Negative) Urine Blood Trace-intact A (Negative) Urine Nitrite Negative (Negative) Urine Bilirubin Negative (Negative) Urine Urobilinogen 0.2 (0.2-1.0) Ur Leukocyte Esterase Negative (Negative) Urine RBC 0-2 (0-2) Urine WBC 0-2 (0-5) Ur Squamous Epith Cells Few (None-Few) Urine Bacteria None (None) <Enoch Yang MD - Last Filed: 07/19/24 15:16> Lab Results 01/17/25 01/17/25 Range/Units 15:30 16:10 WBC 8.76 (4.50-11.00) K/uL RBC 4.32 (4.00-5.20) m/uL Hgb 15.3 (12.0-16.0) gm/dL Hct 43.9 (33.0-51.0) % MCV 102 H (80-100) fL MCH 35 H (26-34) pg MCHC 35 (32-36) gm/dL RDW Coeff of Inez 12.1 (11.5-15.5) % Plt Count 317 (140-440) K/uL Neut % (Auto) 50.9 (42.0-72.0) % Lymph % (Auto) 41.2 (20-44) % [place] % (Auto) 5.7 (0.0-11.0) % Eos % (Auto) 1.6 (0.0-7.0) % Baso % (Auto) 0.5 (0.0-3.0) % Neut # (Auto) 4.46 (1.7-7.0) K/uL Lymph # (Auto) 3.61 H (0.90-2.90) K/uL [place] # (Auto) 0.50 (0.00-0.90) K/UL Eos # (Auto) 0.14 (0.00-0.50) K/uL Baso # (Auto) 0.04 (0.00-0.30) K/uL Abs Immat Gran (auto) 0.01 (0.00-0.30) K/uL Imm/Tot Granulo (auto) 0.1 % Sodium 136 (135-149) mmol/L Potassium 3.5 L (3.6-5.1) mmol/L Chloride 102 (96-114) mmol/L Carbon Dioxide 22 (20-32) mmol/L Anion Gap 12 (7-15) mEq/L BUN 8 (5-24) mg/dL Creatinine 0.6 (0.5-1.5) mg/dL Estimated Creat Clear 102.14 Estimated GFR 123 ml/min Glucose 84 (60-115) mg/dL Lactate 1.2 (0.5-1.9) mmol/L Calcium 9.3 (8.4-10.6) mg/dL Total Bilirubin 1.4 (0.1-1.5) mg/dL AST 55 H (12-35) U/L ALT 47 H (4-35) U/L Alkaline Phosphatase 73 (40-150) U/L Total Protein 8.0 (6.0-8.3) g/dL Albumin 4.9 (3.3-5.0) g/dL Lipase 160 (23-300) U/L Urine Color Yellow (Yellow) Urine Appearance Clear (Clear) Urine pH 7.0 (5.0-8.5) Ur Specific [place] 1.010 (1.000-1.030) Urine Protein Negative (Negative) Urine Glucose (UA) Negative (Negative) Urine Ketones Trace A (Negative) Urine Blood Trace-intact A (Negative) Urine Nitrite Negative (Negative) Urine Bilirubin Negative (Negative) Urine Urobilinogen 0.2 (0.2-1.0) Ur Leukocyte Esterase Negative (Negative) Urine RBC 0-2 (0-2) Urine WBC 0-2 (0-5) Ur Squamous Epith Cells Few (None-Few) Urine Bacteria None (None) <Chase De La Torre DO - Last Filed: 07/19/24 17:12> Discharge Plan Discharge Clinical Impression: Jejunitis <Enoch Yang MD - Last Filed: 07/19/24 15:16> Patient Disposition: Home, Self-Care <Enoch Yang MD - Last Filed: 07/19/24 15:16> Condition: Stable <Enoch Yang MD - Last Filed: 07/19/24 15:16> Instructions: Enteritis (ED) <Enoch Yang MD - Last Filed: 07/19/24 15:16> Additional Instructions: You have inflammation of your to jejunum. This is the middle portion of your small intestine. This is commonly infectious and resolves on its own In a couple days. There could also be autoimmune causes for this that you will need to follow up further with your GI provider for. take the oxycodone as needed for pain and Zofran for nausea. Return to emergency department for new or worsening symptoms. <Enoch Yang MD - Last Filed: 07/19/24 15:16> Prescriptions: New ondansetron 4 mg tablet,disintegrating 4 mg PO Q6H Qty: 20 0RF oxycodone 5 mg tablet 5 mg PO Q6H PRN (Reason: pain) Qty: 12 0RF No Action famotidine [Zantac-360 (famotidine)] 20 mg tablet 20 mg PO QDAY cyanocobalamin (vitamin B-12) 1,000 mcg capsule 1,000 mcg PO QDAY <Enoch Yang MD - Last Filed: 07/19/24 15:16> Follow Up/Referrals: Patricia Mao APRN, [facility] [Primary Care Provider] - <Enoch Yang MD - Last Filed: 07/19/24 15:16> Stand Alone Forms: MyHealth Info Instructions <Enoch Yang MD - Last Filed: 07/19/24 15:16>
--- NOTE | 2024-07-19 15:17 | CRLHL7_ITS ---
For Patients: As a result of the Century Cures Act, medical imaging exams and procedure reports are released immediately into your electronic medical record. You may view this report before your referring provider. If you have questions, please contact your health care provider. Indication: Abdominal pain. History of pancreatitis. Technique: Routine enhanced abdomen and pelvis protocol with Isovue 370, 62 mL. Comparison: July 02, 2024 Findings : Lung bases: No findings for active disease. Liver: Normal in caliber and attenuation. No masses. Gallbladder and bile ducts: Cholecystectomy. No biliary dilation. Pancreas: Unremarkable. Resolution of stranding about the pancreatic head. No fluid collections or residual findings. No dilation of the pancreatic duct. Spleen: Normal in caliber. No masses. Adrenal glands: Unremarkable. No masses. Kidneys: No obstruction. No masses. No calculi. GI tract: Mild dilation of several proximal loops of small bowel with diffuse enhancing pierson. No adjacent stranding. Appendix: No acute appendicitis. Lymph nodes: No lymphadenopathy. Aorta and vessels: No aneurysm or severe stenosis. Omentum/peritoneum/retroperitoneum: No masses or infiltration. No free air. Pelvic organs: 3.0 centimeter rim enhancing slightly collapsed left ovarian cyst. Mild adjacent fluid in the cul-de-sac. Bones: No fractures or suspicious bone lesions. Soft Tissues: No mass lesions or significant hernias. Impression: 1. Resolution of peripancreatic stranding. No focal pancreatic abnormalities. 2. Mild dilation and enhancement of several loops of proximal small bowel consistent with jejunitis. 3. 3.1 centimeter collapsing left ovarian cyst with mild adjacent fluid in the cul-de-sac. No findings for acute or active abdominal or pelvic disease Please note that all CT scans at this facility use dose modulation, iterative reconstruction, and/or weight-based dosing when appropriate to reduce radiation dose to as low as reasonably achievable. Dictated by Chris Chavez MD @ 07/19/2024 4:24:52 PM (Electronically Signed)
[2024-07-19] MEDS: HYDROmorphone 0.5 mg/0.5 ml inj IVP (15:35)
[2024-07-19 15:36] LABS: Lactate* 1.2 mmol/L (0.5-1.9)
[2024-07-19] MEDS: ONDANSETRON 2 MG/ML inj 4 MG IVP (15:36)
[2024-07-19 15:44] VITALS: BP 121/96; PULSE 96; RESP 14; O2SAT 98
[2024-07-19 15:45] LABS: Basophils Absolute Auto 0.04 K/uL (0.00-0.30); Basophils Percent Auto 0.5 % (0.0-3.0); Eosinophils Absolute Auto 0.14 K/uL (0.00-0.50); Eosinophils Percent Auto 1.6 % (0.0-7.0); Hematocrit 43.9 % (33.0-51.0); Hemoglobin* 15.3 gm/dL (12.0-16.0); Immature Granulocytes Abs Auto 0.01 K/uL (0.00-0.30); Immature Granulocytes Pct Auto 0.1 %; Lymphocytes Absolute Auto 3.61 K/uL (0.90-2.90); Lymphocytes Percent Auto 41.2 % (20-44); Mean Corpuscular HGB Conc 35 gm/dL (32-36); Mean Corpuscular Hemoglobin 35 pg (26-34); Mean Corpuscular Volume 102 fL (80-100); Monocytes Percent Auto 5.7 % (0.0-11.0); Neutrophils Absolute Auto 4.46 K/uL (1.7-7.0); Neutrophils Percent Auto 50.9 % (42.0-72.0); Platelet Count* 317 K/uL (140-440); RDW Coefficient of Variation % 12.1 % (11.5-15.5); Red Blood Count 4.32 m/uL (4.00-5.20); White Blood Count* 8.76 K/uL (4.50-11.00)
[2024-07-19 15:52] LABS: Slide Review Reflex No
[2024-07-19 15:56] LABS: Albumin* 4.9 g/dL (3.3-5.0); Chloride* 102 mmol/L (96-114); Potassium* 3.5 mmol/L (3.6-5.1); Sodium* 136 mmol/L (135-149)
[2024-07-19 15:58] LABS: Creatinine* 0.6 mg/dL (0.5-1.5); Est. Creatinine Clearance* 102.14; Estimated Glomerular Filt Rate 123 ml/min
[2024-07-19 15:59] LABS: Alanine Aminotransferase* 47 U/L (4-35); Alkaline Phosphatase* 73 U/L (40-150); Anion Gap 12 mEq/L (7-15); Aspartate Amino Transferase* 55 U/L (12-35); Bilirubin Total* 1.4 mg/dL (0.1-1.5); Blood Urea Nitrogen* 8 mg/dL (5-24); Carbon Dioxide* 22 mmol/L (20-32); Glucose* 84 mg/dL (60-115); Lipase* 160 U/L (23-300)
[2024-07-19 16:00] LABS: Calcium* 9.3 mg/dL (8.4-10.6)
[2024-07-19 16:03] VITALS: O2SAT 98
[2024-07-19 16:23] LABS: Appearance Urine Clear (Clear); Bilirubin Urine Negative (Negative); Blood Urine Trace-intact (Negative); Color Urine Yellow (Yellow); Glucose Urine Negative (Negative); Ketones Urine Trace (Negative); Leukocyte Esterase Urine Negative (Negative); Nitrite Urine Negative (Negative); Protein Urine Negative (Negative); Urobilinogen Urine 0.2 (0.2-1.0)
[2024-07-19 16:52] LABS: RBC Urine 0-2 (0-2); Squamous Epithelial Cell Urine Few (None-Few); WBC Urine 0-2 (0-5)
[2024-07-19 17:00] VITALS: BP 120/72; PULSE 82; RESP 16; O2SAT 98
== END 2024-07-19 17:22 | disposition home or self-care (01) ==
PROVIDERS: Internal Medicine; Emergency Provider Student in an Organized Health Care Education/Training Program; PCP Nurse Practitioner Family
DX: K52.9 Noninfective gastroenteritis and colitis, unspecified (principal)
CPT/HCPCS: 36415; 74177; 80053; 81001; 81003; 83605; 83690; 85025; 94761; 96374; 96375; 99283; 99284; J1171; J2405; Q9967

== ENCOUNTER 2024-09-09 07:32 | Outpatient (CLI) | payer OTHER, SELFPAY | END 2024-09-09 07:33 | disposition home or self-care (01) | LOC: CT 07:32 | PROVIDERS: PCP Nurse Practitioner Family | DX: R19.5 Other fecal abnormalities (principal); R10.13 Epigastric pain; R63.4 Abnormal weight loss; Z87.19 Personal history of other diseases of the digestive system | CPT/HCPCS: 74177; Q9967 ==

== ENCOUNTER 2024-10-25 07:22 | Outpatient (CLI) | payer OTHER, SELFPAY ==
--- NOTE | 2024-10-25 07:15 | CRLHL7_ITS ---
For Patients: As a result of the Century Cures Act, medical imaging exams and procedure reports are released immediately into your electronic medical record. You may view this report before your referring provider. If you have questions, please contact your health care provider. INDICATION: Abnormal LFTs COMPARISON: CT 09/09/2024 TECHNIQUE: Real time day scale imaging and color Doppler analysis was performed of the right upper quadrant. FINDINGS: Liver echotexture is mildly increased. No intrahepatic mass. Liver measures 15.3 cm. There is a normal appearance of the hepatic IVC and proximal abdominal aorta. There is no evidence of ascites. The gallbladder is absent. The common bile duct is of normal size and measures 2 mm in diameter at the level of the zoraida hepatis. The pancreas appears normal. There is no evidence of a stone or hydronephrosis within the right kidney. The right kidney measures 10.2 cm in length. The renal pelvis appears similar to the prior study. This is considered within normal limits. IMPRESSION: Status post cholecystectomy. No biliary obstruction. Mild hepatic steatosis. Dictated by Damon Norris MD @ 10/25/2024 10:13:23 AM (Electronically Signed)
== END 2024-10-25 07:23 | disposition home or self-care (01) ==
PROVIDERS: PCP Nurse Practitioner Family
DX: R79.89 Other specified abnormal findings of blood chemistry (principal); K76.0 Fatty (change of) liver, not elsewhere classified
CPT/HCPCS: 76705

== ENCOUNTER 2024-10-28 07:05 | Outpatient (REF) | payer OTHER, SELFPAY | END 2024-10-28 07:06 | disposition home or self-care (01) | LOC: NPINS 07:05 | PROVIDERS: PCP Nurse Practitioner Family; Visit Provider Registered Nurse | DX: R79.89 Other specified abnormal findings of blood chemistry (principal); R94.5 Abnormal results of liver function studies | CPT/HCPCS: 82525 ==

== ENCOUNTER 2024-11-28 10:47 | Outpatient (CLI) | payer OTHER, SELFPAY ==
[2024-11-28 14:07] LABS: Basophils Absolute Auto 0.06 K/uL (0.00-0.30); Basophils Percent Auto 0.9 % (0.0-3.0); Eosinophils Absolute Auto 0.16 K/uL (0.00-0.50); Eosinophils Percent Auto 2.5 % (0.0-7.0); Hematocrit 39.7 % (33.0-51.0); Hemoglobin* 13.6 gm/dL (12.0-16.0); Lymphocytes Absolute Auto 2.54 K/uL (0.90-2.90); Lymphocytes Percent Auto 39.8 % (20-44); Mean Corpuscular HGB Conc 34 gm/dL (32-36); Mean Corpuscular Hemoglobin 37 pg (26-34); Mean Corpuscular Volume 107 fL (80-100); Monocytes Percent Auto 8.6 % (0.0-11.0); Neutrophils Absolute Auto 3.07 K/uL (1.7-7.0); Neutrophils Percent Auto 48.2 % (42.0-72.0); Platelet Count* 284 K/uL (140-440); White Blood Count* 6.38 K/uL (4.50-11.00)
[2024-11-28 14:13] LABS: Slide Review Reflex No
[2024-11-28 15:35] LABS: Albumin* 4.4 g/dL (3.3-5.0); Chloride* 104 mmol/L (96-114)
[2024-11-28 15:36] LABS: Potassium* 4.5 mmol/L (3.6-5.1); Sodium* 138 mmol/L (135-149)
[2024-11-28 15:38] LABS: Alanine Aminotransferase* 34 U/L (4-35); Alkaline Phosphatase* 55 U/L (40-150); Anion Gap 6 mEq/L (7-15); Aspartate Amino Transferase* 46 U/L (12-35); Bilirubin Total* 0.6 mg/dL (0.1-1.5); Blood Urea Nitrogen* 8 mg/dL (5-24); Carbon Dioxide* 28 mmol/L (20-32); Creatinine* 0.8 mg/dL (0.5-1.5); Estimated Glomerular Filt Rate 101 ml/min
[2024-11-28 15:39] LABS: Calcium* 9.1 mg/dL (8.4-10.6); Glucose* 96 mg/dL (60-115)
== END 2024-11-28 10:48 | disposition home or self-care (01) ==
LOC: NPINS 10:49
PROVIDERS: PCP Nurse Practitioner Family
DX: R79.89 Other specified abnormal findings of blood chemistry (principal)
CPT/HCPCS: 80053; 85025

== ENCOUNTER 2025-02-03 14:50 | Outpatient (CLI) | payer OTHER, SELFPAY ==
[2025-02-03 15:09] LABS: Hematocrit 43.0 % (33.0-51.0); Hemoglobin* 14.9 gm/dL (12.0-16.0); Immature Granulocytes Abs Auto 0.05 K/uL (0.00-0.30); Immature Granulocytes Pct Auto 0.7 %; Lymphocytes Absolute Auto 2.44 K/uL (0.90-2.90); Mean Corpuscular HGB Conc 35 gm/dL (32-36); Mean Corpuscular Hemoglobin 36 pg (26-34); Mean Corpuscular Volume 104 fL (80-100); RDW Coefficient of Variation % 11.7 % (11.5-15.5); Red Blood Count 4.14 m/uL (4.00-5.20); Slide Review Reflex No; White Blood Count* 6.78 K/uL (4.50-11.00)
[2025-02-03 16:37] LABS: INR 1.06 (0.91-1.10); Prothrombin Time 14.6 Seconds
== END 2025-02-03 14:51 | disposition home or self-care (01) ==
PROVIDERS: PCP Nurse Practitioner Family; Visit Provider Nurse Practitioner
DX: R74.8 Abnormal levels of other serum enzymes (principal)
CPT/HCPCS: 36415; 85025; 85610